=== PATIENT | female | born 1945 | race Caucasian/White ===

== ENCOUNTER 2018-12-22 20:33 | Emergency (ER) | payer OTHER ==
[2018-12-22 21:04] LABS: Absolute Lymphocytes (CBC) 2.7 K/uL (0.7-4.9); Absolute Monocytes 0.7 K/uL (0.1-1.3); Absolute Neutrophil 3.2 K/uL (1.8-8.0); Basophils % 0.6 % (0-1.3); Eosinophils % 1.9 % (0-4.4); Hematocrit 40.6 % (36.0-45.0); Lymphocytes % 40.5 % (15.3-44.8); MPV 8.1 fL (7.6-11.3); Monocytes % 9.8 % (3.3-12.3); RBC Red Blood Cell Count 4.48 M/uL (3.86-4.86)
[2018-12-22 21:08] LABS: Protime INR 0.96
[2018-12-22 21:23] LABS: ALT/SGPT 18 U/L (12-78); AST/SGOT 15 U/L (15-37); Albumin 3.9 g/dL (3.4-5.0); Alkaline Phosphatase 93 U/L (45-117); BUN Blood Urea Nitrogen 15 mg/dL (7-18); Bicarbonate 26 mmol/L (21-32); Bilirubin Direct 0.1 mg/dL (0-0.2); Bilirubin Total 0.5 mg/dL (0.2-1.0); Glucose Level 102 mg/dL (74-106); Magnesium 2.4 mg/dL (1.8-2.4); NT PRO-BNP 315 pg/mL (<125); Potassium 3.7 mmol/L (3.5-5.1); Protein, Total 7.6 g/dL (6.4-8.2); Sodium Level 142 mmol/L (136-145); Troponin (Emerg Dept Use Only) < 0.02 ng/mL (0.0-0.045)
--- NOTE | 2018-12-23 00:10 | ER ---
Nurse's Notes [facility] Name: Ivanna Joseph Age: 73 yrs Sex: Female : 1945 Arrival Date: 12/22/2018 Time: 20:34 Bed 5 Private MD: Beny Lopez C Diagnosis: Chest pain, unspecified Presentation: 12/22 20:40 Presenting complaint: Patient states: I have been having SOB and CP since 1300 today la1 but in the last hour it has gotten much worse and my BP at home was 188/99. Transition of care: patient was not received from another setting of care. Onset of symptoms was December 22, 2018. Risk Assessment: Do you want to hurt yourself or someone else? Patient reports no desire to harm self or others. Initial Sepsis Screen: Does the patient meet any 2 criteria? No. Patient's initial sepsis screen is negative. Does the patient have a suspected source of infection? No. Patient's initial sepsis screen is negative. Care prior to arrival: None. 20:40 Method Of Arrival: Wheelchair la1 20:40 Acuity: QUE 2 la1 Historical: - Allergies: 20:41 Codeine; la1 - PMHx: 20:41 Arthritis; Hyperlipidemia; Hypertension; aortic stenosis; la1 - PSHx: 20:41 ; la1 - Immunization history:: Adult Immunizations up to date. - Social history:: Smoking status: Patient/guardian denies using tobacco. - Ebola Screening: : No symptoms or risks identified at this time. Screenin:00 Abuse screen: Denies threats or abuse. Nutritional screening: No deficits noted. jd3 Tuberculosis screening: No symptoms or risk factors identified. Fall Risk IV access (20 points). Ambulatory Aid- None/Bed Rest/Nurse Assist (0 pts). Gait- Normal/Bed Rest/Wheelchair (0 pts) Mental Status- Oriented to own ability (0 pts). Total [place] Fall Scale indicates No Risk (0-24 pts). Assessment: 20:46 General: Appears uncomfortable, Behavior is calm, cooperative, appropriate for age. jd3 Pain: Complains of pain in chest Pain does not radiate. Quality of pain is described as pressure, Pain began gradually. Neuro: Level of Consciousness is awake, alert, obeys commands, Oriented to person, place, time, situation, Appropriate for age. Cardiovascular: Murmur present Capillary refill < 3 seconds Patient's skin is warm and dry. Respiratory: Reports shortness of breath at rest Airway is patent Respiratory effort is even, unlabored, Respiratory pattern is regular, symmetrical, Breath sounds are clear bilaterally. GI: No signs and/or symptoms were reported involving the gastrointestinal system. : No signs and/or symptoms were reported regarding the genitourinary system. EENT: No signs and/or symptoms were reported regarding the EENT system. Derm: Skin is intact, Skin is dry, Skin is normal, Skin temperature is warm. Musculoskeletal: Circulation, motion, and sensation intact. Range of motion: intact in all extremities. 21:30 Reassessment: Patient appears in no apparent distress at this time. Patient and/or jd3 family updated on plan of care and expected duration. Pain level reassessed. Patient is alert, oriented x 3, equal unlabored respirations, skin warm/dry/pink. 22:07 Reassessment: Patient appears in no apparent distress at this time. Patient and/or jd3 family updated on plan of care and expected duration. Pain level reassessed. Patient is alert, oriented x 3, equal unlabored respirations, skin warm/dry/pink. 23:04 Reassessment: Patient appears in no apparent distress at this time. Patient and/or jd3 family updated on plan of care and expected duration. Pain level reassessed. Patient is alert, oriented x 3, equal unlabored respirations, skin warm/dry/pink. Patient states feeling better. 12/23 01:18 Reassessment: Patient appears in no apparent distress at this time. Patient is alert, aa1 oriented x 3, equal unlabored respirations, skin warm/dry/pink. Discussed d/c \T\ f/u instructions with pt; denies questions or concerns at this time. Ambulatory to lobby with steady gait. Patient states feeling better. Vital Signs: 12/22 20:42 Weight 63.5 kg; Height 5 ft. 4 in. (162.56 cm); la1 20:45 BP 187 / 83; Pulse 68; Resp 18 S; Temp 98.0(O); Pulse Ox 98% on R/A; Pain 5/10; jd3 21:30 BP 136 / 60; Pulse 62; Resp 17 S; Pulse Ox 97% on R/A; jd3 22:08 BP 153 / 69; Pulse 68; Resp 15 S; Pulse Ox 97% on R/A; jd3 23:04 BP 158 / 69; Pulse 62; Resp 15 S; Pulse Ox 97% on R/A; Pain 0/10; jd3 12/23 00:46 BP 145 / 68; Pulse 66; Resp 16; Pulse Ox 98% on R/A; la1 12/22 20:42 Body Mass Index 24.03 (63.50 kg, 162.56 cm) la1 ED Course: 12/22 20:34 Patient arrived in ED. am2 20:34 Beny Lopez MD is Private Physician. am2 20:38 Koby Dave MD is Attending Physician. kdr 20:41 Triage completed. la1 20:41 Arm band placed on right wrist. la1 20:45 Otoniel Garcia RN is Primary Nurse. jd3 20:55 EKG done, by ED staff, reviewed by Koby Dave MD. ag4 20:55 Inserted saline lock: 20 gauge in left antecubital area, using aseptic technique. Blood jd3 collected. 21:05 XRAY Chest (1 view) In Process Unspecified. EDMS 22:10 Patient has correct armband on for positive identification. Placed in gown. Bed in low jd3 position. Call light in reach. Side rails up X2. Adult w/ patient. shelter monitor on. Pulse ox on. NIBP on. 22:10 Patient maintains SpO2 saturation greater than 95% on room air. jd3 12/23 00:08 Beny Lopez MD is Referral Physician. kdr 00:46 No provider procedures requiring assistance completed. IV discontinued, intact, la1 bleeding controlled, No redness/swelling at site. Pressure dressing applied. Administered Medications: No medications were administered Outcome: 00:09 Discharge ordered by . kdr 00:46 Discharged to home ambulatory. la1 00:46 Condition: stable 00:46 Discharge instructions given to patient, Instructed on discharge instructions, follow up and referral plans. medication usage, Demonstrated understanding of instructions, follow-up care. 01:19 Patient left the ED. aa1 Signatures: Dispatcher [employer] EDMS Chantelle King RN RN aa1 Rittger, Koby, Marlon Barker MD RN RN la1 Madisyn Beck am2 Otoniel Garcia RN RN jd3 Candido, Mike ag4
--- NOTE | 2018-12-23 00:10 | EDPHYS ---
Physician Documentation [facility] Name: Ivanna Joseph Age: 73 yrs Sex: Female : 1945 Arrival Date: 12/22/2018 Time: 20:34 Bed 5 Private MD: Beny Lopez C ED Physician Koby Dave HPI: 12/23 03:26 This 73 yrs old Female presents to ER via Wheelchair with complaints of Chest kdr Pain. 03:26 The patient or guardian reports chest pain that is located primarily in the anterior kdr chest wall, bilaterally. Onset: gradually, at 13:00. The pain does not radiate. Associated signs and symptoms: Pertinent positives: shortness of breath, Pertinent negatives: diaphoresis, dizziness, headache, nausea, palpitations, recent travel, syncope. The chest pain is described as aching, burning, dull. Duration: The patient or guardian reports a single episode, that is now resolved. Modifying factors: The symptoms are alleviated by nothing. the symptoms are aggravated by nothing. Severity of pain: At its worst the pain was mild in the emergency department the pain has resolved. The patient has not experienced similar symptoms in the past. The patient has not recently seen a physician. Historical: - Allergies: 12/22 20:41 Codeine; la1 - PMHx: 20:41 Arthritis; Hyperlipidemia; Hypertension; aortic stenosis; la1 - PSHx: 20:41 ; la1 - Immunization history:: Adult Immunizations up to date. - Social history:: Smoking status: Patient/guardian denies using tobacco. - Ebola Screening: : No symptoms or risks identified at this time. ROS: 12/23 03:26 Constitutional: Negative for fever, chills, and weight loss, Eyes: Negative for injury, kdr pain, redness, and discharge, Neck: Negative for injury, pain, and swelling, Respiratory: Negative for shortness of breath, cough, wheezing, and pleuritic chest pain, Abdomen/GI: Negative for abdominal pain, nausea, vomiting, diarrhea, and constipation, Back: Negative for injury and pain, : Negative for injury, bleeding, discharge, and swelling, MS/Extremity: Negative for injury and deformity, Skin: Negative for injury, rash, and discoloration, Neuro: Negative for headache, weakness, numbness, tingling, and seizure activity. Psych: Negative for depression, anxiety, suicide ideation, homicidal ideation, and hallucinations, Allergy/Immunology: Negative for hives, rash, and allergies, Endocrine: Negative for neck swelling, polydipsia, polyuria, polyphagia, and marked weight changes, Hematologic/Lymphatic: Negative for swollen nodes, abnormal bleeding, and unusual bruising. Cardiovascular: Positive for chest pain, Negative for edema, orthopnea, palpitations, paroxysmal nocturnal dyspnea. Exam: 03:26 Constitutional: This is a well developed, well nourished patient who is awake, alert, kdr and in no acute distress. Head/Face: Normocephalic, atraumatic. Eyes: Pupils equal round and reactive to light, extra-ocular motions intact. Lids and lashes normal. Conjunctiva and sclera are non-icteric and not injected. Cornea within normal limits. Periorbital areas with no swelling, redness, or edema. Neck: Trachea midline, no thyromegaly or masses palpated, and no cervical lymphadenopathy. Supple, full range of motion without nuchal rigidity, or vertebral point tenderness. No Meningismus. Chest/axilla: Normal chest wall appearance and motion. Nontender with no deformity. No lesions are appreciated. Cardiovascular: Regular rate and rhythm with a normal S1 and S2. No gallops, murmurs, or rubs. Normal PMI, no JVD. No pulse deficits. Respiratory: Lungs have equal breath sounds bilaterally, clear to auscultation and percussion. No rales, rhonchi or wheezes noted. No increased work of breathing, no retractions or nasal flaring. Abdomen/GI: Soft, non-tender, with normal bowel sounds. No distension or tympany. No guarding or rebound. No evidence of tenderness throughout. Back: No spinal tenderness. No costovertebral tenderness. Full range of motion. Skin: Warm, dry with normal turgor. Normal color with no rashes, no lesions, and no evidence of cellulitis. MS/ Extremity: Pulses equal, no cyanosis. Neurovascular intact. Full, normal range of motion. Neuro: Awake and alert, GCS 15, oriented to person, place, time, and situation. Cranial nerves II-XII grossly intact. Motor strength 5/5 in all extremities. Sensory grossly intact. Cerebellar exam normal. Normal gait. Psych: Awake, alert, with orientation to person, place and time. Behavior, mood, and affect are within normal limits. Vital Signs: 12/22 20:42 Weight 63.5 kg; Height 5 ft. 4 in. (162.56 cm); la1 20:45 BP 187 / 83; Pulse 68; Resp 18 S; Temp 98.0(O); Pulse Ox 98% on R/A; Pain 5/10; jd3 21:30 BP 136 / 60; Pulse 62; Resp 17 S; Pulse Ox 97% on R/A; jd3 22:08 BP 153 / 69; Pulse 68; Resp 15 S; Pulse Ox 97% on R/A; jd3 23:04 BP 158 / 69; Pulse 62; Resp 15 S; Pulse Ox 97% on R/A; Pain 0/10; jd3 12/23 00:46 BP 145 / 68; Pulse 66; Resp 16; Pulse Ox 98% on R/A; la1 12/22 20:42 Body Mass Index 24.03 (63.50 kg, 162.56 cm) la1 MDM: 00:09 Patient medically screened. kdr 03:26 HEART Score: History: Slightly Suspicious (0), ECG: Non specific repolarization kdr disturbance / LBTB / PM (1), Age: > or = 65 years (2), Risk Factors: 1 or 2 risk factors (1), [Hypertension] Troponin: < or = 1 x Normal Limit (0), Total Score =. INA Risk Score: 1 - patient's age is greater or equal to 65 years, TOTAL SCORE = 1. Data reviewed: vital signs, nurses notes, lab test result(s), EKG, radiologic studies. Counseling: I had a detailed discussion with the patient and/or guardian regarding: the historical points, exam findings, and any diagnostic results supporting the discharge/admit diagnosis, lab results, radiology results, the need for outpatient follow up. ED course: HEART Score: Moderate; INA 4 - 7.3 % 30 day mortality. 12/22 20:41 Order name: Basic Metabolic Panel kdr 12/22 20:41 Order name: CBC with Diff; Complete Time: 21:12 kdr 12/22 20:41 Order name: LFT's; Complete Time: 22:37 kdr 12/22 20:41 Order name: Magnesium; Complete Time: 22:37 kdr 12/22 20:41 Order name: NT PRO-BNP; Complete Time: 22:37 [facility] 12/22 20:41 Order name: PT-INR; Complete Time: 21:12 [facility] 12/22 20:41 Order name: Troponin (emerg Dept Use Only); Complete Time: 22:37 [facility] 12/22 20:41 Order name: XRAY Chest (1 view) [facility] 12/22 20:41 Order name: EKG; Complete Time: 20:42 [facility] 12/22 20:41 Order name: Cardiac monitoring; Complete Time: 20:59 [facility] 12/22 20:41 Order name: EKG - Nurse/Tech; Complete Time: 21:00 [facility] 12/22 20:41 Order name: IV Saline Lock; Complete Time: 21:00 [facility] 12/22 20:41 Order name: Basic Metabolic Panel; Complete Time: 22:37 [facility] 12/22 22:38 Order name: Troponin (emerg Dept Use Only): Draw two hours from initial draw; Complete kdr Time: 00:07 12/22 20:41 Order name: Labs collected and sent; Complete Time: 21:00 [facility] 12/22 20:41 Order name: O2 Per Protocol; Complete Time: 21:00 [facility] 12/22 20:41 Order name: O2 Sat Monitoring; Complete Time: 21:00 kdr Administered Medications: No medications were administered Disposition: 12/23/18 00:09 Discharged to Home. Impression: Chest pain, unspecified. - Condition is Stable. - Discharge Instructions: Nonspecific Chest Pain, [id number]. - Medication Reconciliation Form, Thank You Letter form. - Follow up: Beny Lopez MD; When: 2 - 3 days; Reason: If symptoms return, Further diagnostic work-up, Recheck today's complaints, Continuance of care, Re-evaluation by your physician. - Problem is new. - Symptoms are resolved. Signatures: Dispatcher [employer] EDChantelle Dillon RN RN aa1 Koby Dave MD MD kdr Attema, Lee RN RN la1 Corrections: (The following items were deleted from the chart) 01:19 00:09 12/23/2018 00:09 Discharged to Home. Impression: Chest pain, unspecified. aa1 Condition is Stable. Forms are Medication Reconciliation Form, Thank You Letter, Antibiotic Education, Prescription Opioid Use. Follow up: A Lopez; When: 2 - 3 days; Reason: If symptoms return, Further diagnostic work-up, Recheck today's complaints, Continuance of care, Re-evaluation by your physician. Problem is new. Symptoms are resolved. kdr
[2018-12-23 04:33] VITALS: TEMP 98
[2018-12-23 04:39] VITALS: BP 145/68; O2SAT 98
--- NOTE | 2018-12-23 07:42 | RAD REPORT ---
EXAM DESCRIPTION: RAD - Chest Single View - 12/22/2018 9:05 pm CLINICAL HISTORY: Chest pain, shortness of breath COMPARISON: May 2017 TECHNIQUE: AP portable chest image was obtained 2102 hours . FINDINGS: No focal mass or consolidation. Interstitial markings are prominent but not different from 2017. Heart and vasculature are normal. No measurable pleural effusion and no pneumothorax. No acute bony abnormality seen. No acute aortic findings suspected. IMPRESSION: No acute cardiopulmonary process. No significant change from comparison.
--- NOTE | 2018-12-23 08:47 | EKG ---
Test Date: 2018-12-22 Test Time: 20:45:29 Slot Operations Manager: [id number] MEASUREMENT RESULTS: Intervals: Rate: 66 TN: 186 QRSD: 84 QT: 390 QTc: 408 Esko: P: 70 TN: 186 QRS: 18 T: 42 INTERPRETIVE STATEMENTS: Normal sinus rhythm Normal ECG Compared to ECG 06/09/2017 13:42:11 Left ventricular hypertrophy no longer present Electronically Signed On 12-23-18 08:46:01 CDT by Bar Davis
== END 2018-12-23 01:19 | disposition home or self-care (01) ==
LOC: ER 20:33
DX: R07.9 Chest pain, unspecified (principal); I10 Essential (primary) hypertension; Z88.5 Allergy status to narcotic agent
CPT/HCPCS: 36415; 71045; 80048; 80076; 83735; 83880; 84484; 85025; 85610; 93005; 99285

== ENCOUNTER 2018-12-27 07:31 | Day surgery (SDC) | payer OTHER ==
[2018-12-26 14:21] LABS: Protime INR 1.01
[2018-12-27] MEDS ORDERED: NA CHLORIDE 0.9% 500 ML ONE (07:54)
[2018-12-27] MEDS ORDERED: HEPA 1000U/500MLS 1,000 UNIT/500 ML BAG IV ONE (08:44)
[2018-12-27] MEDS ORDERED: NA CHLORIDE 0.9% 0 ML ONE (08:57)
[2018-12-27] MEDS ORDERED: NA CHLORIDE 0.9% 100 ML IV ONE (08:57)
[2018-12-27] MEDS ORDERED: MIDAZOLAM HCL 2 MG/2 ML INJ ONE ×2 (08:57→09:23)
[2018-12-27] MEDS ORDERED: ATROPINE SULF 1 MG/10 ML SYR IV ONE (08:57)
[2018-12-27] MEDS ORDERED: FENTANYL CITR 100 MCG/2 ML ONE (08:57)
[2018-12-27 11:53] VITALS: BP 117/51; TEMP 97.6; O2SAT 97
--- NOTE | 2018-12-27 20:21 | OP ---
Surgeon: Bar Davis MD Physician Compensation Analyst: Nurse Ilya and nurse Gloria. The patient admitted as an outpatient on 12/27/2018 to the computer laboratory technician for left and right heart catheter ization. Indications: Ms. Joseph is 73, has had symptoms suggestive of severe aortic stenosis. An echocardio gram showed an area of 0.8 cm2. The patient has been having presyncope and chest pain with exertion. In the computer laboratory technician, she was prepped and draped in the routine sterile fashion. She was given, I belie ve, 4 mg of Versed and 100 of fentanyl for IV sedation. She was prepped and draped in the routine st erile fashion. She had a 7-Chile[place] venous sheath in the right common femoral vein, a 6-[place] arteria l sheath in the common femoral artery. The [place] catheter was floated via the right common femor al vein into the right atrium, right ventricle, pulmonary artery, and then wedge pressure. All those pressures were normal. O2 saturation run was done. These are pending. Cardiac output was about 4. 4 L/minute. Left heart catheterization showing normal LAD, normal circumflex, which was dominant, 10 0% nondominant small RCA. There were no complications. Blood Loss: 5 cc. Anesthesia: Total conscious sedation was 45 minutes. Plan: For aortic valve replacement surgery by Dr. Daria schuler in [place]. Final Diagnoses: Mild coronary artery disease and severe aortic valve stenosis. ANAHI/ROSAMARIA Voice ID: [id number] Report ID: [id number]
== END 2018-12-27 12:00 | disposition home or self-care (01) ==
LOC: CCL 07:31
DX: I35.0 Nonrheumatic aortic (valve) stenosis (principal); I25.10 Atherosclerotic heart disease of native coronary artery without angina pectoris; I10 Essential (primary) hypertension; E78.6 Lipoprotein deficiency; E78.5 Hyperlipidemia, unspecified; Z79.899 Other long term (current) drug therapy; Z79.82 Long term (current) use of aspirin
CPT/HCPCS: 36415; 85610; 85730; 93456; C1893; J2250 ×2; J3010; J0583

== ENCOUNTER 2019-03-25 11:35 | Emergency (ER) | payer OTHER ==
--- OUTSIDE RECORDS SUMMARY | 2019-03-25 11:40 | XMS REPORT | Clinical Summary ---
:1945 Author Organization [facility] Address [address] [place] [address] Care Team Providers Name Role Phone Asked, No Pcp Primary Care Provider Unavailable Allergies Active Allergy Reactions Severity Noted Date Comments Atorvastatin Other (See Comments) 01/03/2019 Feels confuse. Codeine Other (See Comments) Low 01/03/2019 Lowers heart rate. Tomato Rash Low 02/13/2019 Pt states when she consumes tomatoes she develops a rash on her face. Iodixanol Palpitations, Other (See Low 01/24/2019 Tachycardia Comments), Hypertension Medications Medication Sig Dispensed Refills Start Date End Date Status pravastatin Take 80 mg by 6 12/06/2018 Active (PRAVACHOL) 80 MG mouth nightly. tablet aspirin (ECOTRIN) Take 81 mg by 0 Active 81 MG enteric mouth daily. coated tablet carvedilol Take 1 tablet 60 tablet 0 02/15/2019 02/15/2020 Active (COREG) 6.25 MG (6.25 mg total) tablet by mouth 2 (two) times a day. amIODarone Amiodarone 400 44 tablet 0 02/15/2019 Active (PACERONE) 400 MG mg BID X 7 days tablet dispense # 14 till 02/22/2019 Then Amiodarone 200 mg BID 30 days #60 From 02/23/2019 to 03/26/2019 carvedilol Take 6.25 mg by 6 11/01/2018 02/15/2019 Discontinued (COREG) 6.25 MG mouth 2 (two) tablet times a day as needed. amIODarone Take 1 tablet 60 tablet 0 02/15/2019 02/15/2019 Discontinued (PACERONE) 400 MG (400 mg total) tablet by mouth 2 (two) times a day for 30 days. traMADol (ULTRAM) Take 1 tablet 30 tablet 0 02/15/2019 02/22/2019 50 mg tablet (50 mg total) by mouth every 6 (six) hours as needed for moderate pain for up to 7 days. Active Problems Problem Noted Date Aortic stenosis 03/07/2019 Primary spontaneous pneumothorax 02/10/2019 Paroxysmal atrial fibrillation 02/10/2019 Atelectasis 02/10/2019 Coronary artery disease involving [place] coronary artery of [place] heart 01/03 without angina pectoris Essential hypertension 01/03/2019 Resolved Problems Problem Noted Date Resolved Date Acute blood loss anemia 02/10/2019 02/15/2019 Nonrheumatic aortic (valve) stenosis 02/07/2019 02/15/2019 Nonrheumatic aortic valve stenosis 01/03/2019 02/15/2019 Encounters Date Type Specialty Care Team Description 03/07/2019 Office Visit Cardiovascular Daria, Nonrheumatic aortic Rehana valve stenosis MD Rosi (Primary Dx) 03/07/2019 Hospital Encounter Radiology Daria, Nonrheumatic aortic Rehana valve stenosis MD Rosi 03/07/2019 Orders Only Cardiovascular Adalberto, Atelectasis (Primary Rosalia Dx) LISA Mcneill 02/20/2019 Telephone Cardiovascular Adalberto, Nonrheumatic aortic Rosalia valve stenosis LISA Mcneill (Primary Dx) 02/19/2019 Orders Only Cardiovascular Ani Aguilar MA Post-operative state (Primary Dx) 02/15/2019 Patient Outreach Quality Caroline Ponce RN 02/07/2019 Surgery Cardiothoracic Daria, [facility] AORTIC VALVE Surgery Rehana REPLACEMENT, WITH MD Rosi TCD MONITORING 02/07/2019 Anesthesia Event Cardiothoracic Madisyn Alves Surgery W., POT FEEDER 02/07/2019 Hospital Encounter General Internal Daria, S/P CABG ( coronary artery bypass graft) (Primary Dx); - Medicine Rehana Nonrheumatic aortic valve stenosis 02/15/2019 MD Rosi 01/24/2019 Hospital Encounter Radiology Daria, Nonrheumatic aortic valve stenosis; Rehana Pre-op evaluation MD Rosi 01/24/2019 Pre-Admit Testing Pre-Admission Testing Daria, Nonrheumatic aortic valve stenosis; Appointment Rehana Pre-op evaluation MD Rosi 01/24/2019 Hospital Encounter Procedural Cardiology Daria, Nonrheumatic aortic Rehana valve stenosis MD Rosi 01/04/2019 Orders Only Cardiovascular Ani Aguilar MA Nonrheumatic aortic valve stenosis (Primary Dx) 01/03/2019 Office Visit Cardiovascular Daria, Coronary artery disease involving [place] coronary artery of [place] heart without angina pectoris (Primary Dx); Rehana Nonrheumatic aortic valve stenosis; MD Rosi Essential hypertension; Abnormal cardiovascular function study 01/03/2019 Hospital Encounter Procedural Cardiology Daria, Nonrheumatic aortic valve stenosis; Rehana Coronary artery disease involving [place] coronary artery of [place] heart, angina presence unspecified MD Rosi 01/03/2019 Hospital Encounter Pulmonology Daria, Nonrheumatic aortic Rehana (valve) stenosis MD Rosi 01/03/2019 Orders Only Cardiovascular Chetna Martinez RN Nonrheumatic aortic valve stenosis (Primary Dx); Pre-op evaluation 01/01/2019 Orders Only Cardiovascular Chetna Martinez RN Nonrheumatic aortic valve stenosis (Primary Dx); Coronary artery disease involving [place] coronary artery of [place] heart, angina presence unspecified after 03/24/2018 Social History Tobacco Use Types Packs/Day Years Used Date Never Smoker Smokeless Tobacco: Never Used Alcohol Use Drinks/Week oz/Week Comments Not Currently Sex Assigned at Date Recorded Not on file Job Start Date Occupation Industry Not on file Not on file Not on file Travel History Travel Start Travel End No recent travel history available. Last Filed Vital Signs Vital Sign Reading Time Taken Blood Pressure 110/60 03/07/2019 12:53 PM CDT Pulse 65 03/07/2019 12:53 PM CDT Temperature 36.6 C (97.8 F) 03/07/2019 12:53 PM CDT Respiratory Rate 14 03/07/2019 12:53 PM CDT Oxygen Saturation 97% 02/15/2019 11:30 AM CDT Inhaled Oxygen Concentration - - Weight 66 kg (145 lb 8 oz) 03/07/2019 12:53 PM CDT Height 162.6 cm (5' 4") 03/07/2019 12:53 PM CDT Body Mass Index 24.98 03/07/2019 12:53 PM CDT Plan of Treatment Date Type Specialty Care Team Description 04/02/2019 Office Visit Cardiovascular Rehana Mullins MD [address] [facility] [address] [place] [id number] Health Maintenance Due Date Last Done Comments BREAST CANCER SCREENING 1994 COLONOSCOPY SCREENING 1994 SHINGLES VACCINES (#1) 1994 65+ PNEUMOCOCCAL VACCINE (1 of 2 - PCV13) 2009 INFLUENZA VACCINE 03/14/2019 Implants Implanted Type Area [employer] Business Intelligence Developer Device Shelf Model / Identifier Expiration Serial / Date Lot Lead Pace Glenn Mycrdl Unipol Tmpry Streamline - [id number] Cardiac Pacing N/A : [employer] 11/22/2020 [id number] / Implanted: Qty: 1 on 02/07/2019 by Rehana Mullins MD Leads or N/A CARDIOVASCULAR / Electrodes or Accessories Lead Pace Glenn Mycrdl Unipol Tmpry Streamline - [id number] Cardiac Pacing N/A : [employer] 11/22/2020 [id number] / Implanted: Qty: 1 on 02/07/2019 by Rehana Mullins MD Leads or N/A CARDIOVASCULAR / Electrodes or Accessories Lead Pace Mycrdl Bipolar Coax Tmpry Streamline - [id number] Cardiac Pacing N/ A: [employer] [facility] - 11/13/2020 [id number] / Implanted: Qty: 1 on 02/07/2019 by Rehana Mullins MD Leads or N/A CARDIAC RYHTYM / Electrodes or MGMT Accessories Valve Perceval Medium 23mm - [id number] Cardiovascular N/A: [employer] 01/05/2021 [id number] / Implanted: 02/07/2019 (Quantity not on file) Implants N/A [id number] / [id number] Sternal Drill-Free, Maxdrive Locking Screw 2.3mm X 11mm Ti-6al-4v Titanium Alloy - [id number] IMPLANT SWETHA TURNER 24 023 11 91 / Implanted: Qty: 6 on 02/07/2019 by Rehana Mullins MD DEVICES / Plate, Lock, Sternal, 14 Holes - [id number] IPM IMPLANT SWETHA TURNER 24 025 [id number] 09 / Implanted: Qty: 1 on 02/07/2019 by Rehana Mullins MD DEVICES / Clip Ligtng Weck Hemoclip Plus W/ Tape Ti Med - [id number] Medical Clips for N/A: [employer] 11/06/2023 [id number] / Implanted: Qty: 3 on 02/07/2019 by Rehana Mullins MD Internal Use N/A / Clip Ligtng Vicck Hemoclip Plus W/ Tape Ti Sm Strngpnt - [id number] Medical Clips for N/A: WECK [employer]OSURE 2023 [id number] / Implanted: Qty: 3 on 02/07/2019 by Rehana Mullins MD Internal Use N/A SYSTEMS / Kit Dev Cor-Knot - [id number] Surgical N/A: [employer] 10/11/2020 [id number] / Implanted: Qty: 1 on 02/07/2019 by Rehana Mullins MD Implants ; N/A / Expanders; Extenders; Surgical Wires [facility] Vasclr Ptfe 1.2x10cm 1.65mm - [id number] Vascular Graft N/A: BARD PERIPHERAL 11/09/2023 [id number] / Implanted: Qty: 1 on 02/07/2019 by Rehana Mullins MD N/A VASCULAR / [id number] Procedures Procedure Name Priority Date/Time Associated Diagnosis Comments XR CHEST 2 VW Routine 03/07/2019 10:41 Nonrheumatic aortic Results for this AM CDT valve stenosis procedure are in the results section. XR CHEST 1 VW PORTABLE Routine 02/15/2019 11:21 Results for this AM CDT procedure are in the results section. ESTIMATED GFR Routine 02/14/2019 4:19 Results for this AM CDT procedure are in the results section. MAGNESIUM LEVEL Routine 02/14/2019 4:19 Results for this AM CDT procedure are in the results section. BASIC METABOLIC PANEL Routine 02/14/2019 4:19 Results for this AM CDT procedure are in the results section. HC COMPLETE BLD COUNT Routine 02/14/2019 4:19 Results for this W/AUTO DIFF AM CDT procedure are in the results section. XR CHEST 1 VW PORTABLE Routine 02/13/2019 12:26 Results for this PM CDT procedure are in the results section. ESTIMATED GFR Routine 02/13/2019 4:10 Results for this AM CDT procedure are in the results section. HC COMPLETE BLD COUNT Routine 02/13/2019 4:10 Results for this W/AUTO DIFF AM CDT procedure are in the results section. MAGNESIUM LEVEL Routine 02/13/2019 4:10 Results for this AM CDT procedure are in the results section. BASIC METABOLIC PANEL Routine 02/13/2019 4:10 Results for this AM CDT procedure are in the results section. ECHOCARDIOGRAM 2D Routine 02/12/2019 7:15 Results for this COMPLETE W MMODE PM CDT procedure are in SPECTRAL COLOR DOPPLER the results (44295) section. PREPARE RBC Routine 02/12/2019 11:00 Results for this AM CDT procedure are in the results section. TYPE AND SCREEN Routine 02/12/2019 11:00 Results for this AM CDT procedure are in the results section. CBC HEMOGRAM Routine 02/12/2019 1:00 Results for this AM CDT procedure are in the results section. ESTIMATED GFR Routine 02/12/2019 12:00 Results for this AM CDT procedure are in the results section. PHOSPHORUS LEVEL Routine 02/12/2019 12:00 Results for this AM CDT procedure are in the results section. IONIZED CALCIUM Routine 02/12/2019 12:00 Results for this AM CDT procedure are in the results section. MAGNESIUM LEVEL Routine 02/12/2019 12:00 Results for this AM CDT procedure are in the results section. BASIC METABOLIC PANEL Routine 02/12/2019 12:00 Results for this AM CDT procedure are in the results section. POC GLUCOSE Routine 02/11/2019 11:44 Results for this AM CDT procedure are in the results section. POC GLUCOSE Routine 02/11/2019 7:51 Results for this AM CDT procedure are in the results section. XR CHEST 1 VW PORTABLE Routine 02/11/2019 6:22 Results for this AM CDT procedure are in the results section. POC GLUCOSE Routine 02/11/2019 4:43 Results for this AM CDT procedure are in the results section. ESTIMATED GFR Routine 02/11/2019 3:36 Results for this AM CDT procedure are in the results section. BASIC METABOLIC PANEL Routine 02/11/2019 3:36 Results for this AM CDT procedure are in the results section. PHOSPHORUS LEVEL Routine 02/11/2019 3:36 Results for this AM CDT procedure are in the results section. MAGNESIUM LEVEL Routine 02/11/2019 3:36 Results for this AM CDT procedure are in the results section. CBC HEMOGRAM Routine 02/11/2019 3:10 Results for this AM CDT procedure are in the results section. POC GLUCOSE Routine 02/11/2019 12:26 Results for this AM CDT procedure are in the results section. POC GLUCOSE Routine 02/10/2019 8:53 Results for this PM CDT procedure are in the results section. XR CHEST 1 VW PORTABLE STAT 02/10/2019 5:59 Results for this PM CDT procedure are in the results section. POC GLUCOSE Routine 02/10/2019 4:30 Results for this PM CDT procedure are in the results section. POC GLUCOSE Routine 02/10/2019 11:51 Results for this AM CDT procedure are in the results section. PHOSPHORUS LEVEL Routine 02/10/2019 10:30 Results for this AM CDT procedure are in the results section. MAGNESIUM LEVEL Routine 02/10/2019 10:30 Results for this AM CDT procedure are in the results section. IONIZED CALCIUM Routine 02/10/2019 10:30 Results for this AM CDT procedure are in the results section. POTASSIUM LEVEL Routine 02/10/2019 10:30 Results for this AM CDT procedure are in the results section. ECG 12-LEAD STAT 02/10/2019 10:25 Results for this AM CDT procedure are in the results section. POC GLUCOSE Routine 02/10/2019 7:50 Results for this AM CDT procedure are in the results section. HEMOGLOBIN & STAT 02/10/2019 6:03 Results for this HEMATOCRIT AM CDT procedure are in the results section. XR CHEST 1 VW PORTABLE Routine 02/10/2019 4:58 Results for this AM CDT procedure are in the results section. POC GLUCOSE Routine 02/10/2019 4:03 Results for this AM CDT procedure are in the results section. HEMOGLOBIN & STAT 02/10/2019 3:06 Results for this HEMATOCRIT AM CDT procedure are in the results section. ECG 12-LEAD Routine 02/10/2019 2:27 Results for this AM CDT procedure are in the results section. HEMOGLOBIN & STAT 02/10/2019 2:19 Results for this HEMATOCRIT AM CDT procedure are in the results section. IONIZED CALCIUM Routine 02/10/2019 1:30 Results for this AM CDT procedure are in the results section. ESTIMATED GFR Routine 02/10/2019 1:30 Results for this AM CDT procedure are in the results section. CBC HEMOGRAM Routine 02/10/2019 1:30 Results for this AM CDT procedure are in the results section. BASIC METABOLIC PANEL Routine 02/10/2019 1:30 Results for this AM CDT procedure are in the results section. PHOSPHORUS LEVEL Routine 02/10/2019 1:30 Results for this AM CDT procedure are in the results section. MAGNESIUM LEVEL Routine 02/10/2019 1:30 Results for this AM CDT procedure are in the results section. POC GLUCOSE Routine 02/10/2019 12:04 Results for this AM CDT procedure are in the results section. POC GLUCOSE Routine 02/09/2019 7:52 Results for this PM CDT procedure are in the results section. POC GLUCOSE Routine 02/09/2019 4:01 Results for this PM CDT procedure are in the results section. IONIZED CALCIUM Routine 02/09/2019 3:13 Results for this PM CDT procedure are in the results section. PHOSPHORUS LEVEL Routine 02/09/2019 3:13 Results for this PM CDT procedure are in the results section. MAGNESIUM LEVEL Routine 02/09/2019 3:13 Results for this PM CDT procedure are in the results section. POTASSIUM LEVEL Routine 02/09/2019 3:13 Results for this PM CDT procedure are in the results section. POC GLUCOSE Routine 02/09/2019 11:55 Results for this AM CDT procedure are in the results section. POC GLUCOSE Routine 02/09/2019 7:38 Results for this AM CDT procedure are in the results section. POC GLUCOSE Routine 02/09/2019 4:04 Results for this AM CDT procedure are in the results section. XR CHEST 1 VW PORTABLE Routine 02/09/2019 1:55 Results for this AM CDT procedure are in the results section. ARTERIAL BLOOD GAS Routine 02/09/2019 1:45 Results for this AM CDT procedure are in the results section. ECG 12-LEAD Routine 02/09/2019 12:55 Results for this AM CDT procedure are in the results section. TROPONIN Routine 02/09/2019 12:22 Results for this AM CDT procedure are in the results section. ESTIMATED GFR Routine 02/08/2019 11:50 Results for this PM CDT procedure are in the results section. IONIZED CALCIUM Routine 02/08/2019 11:50 Results for this PM CDT procedure are in the results section. PHOSPHORUS LEVEL Routine 02/08/2019 11:50 Results for this PM CDT procedure are in the results section. MAGNESIUM LEVEL Routine 02/08/2019 11:50 Results for this PM CDT procedure are in the results section. BASIC METABOLIC PANEL Routine 02/08/2019 11:50 Results for this PM CDT procedure are in the results section. HC COMPLETE BLD COUNT Routine 02/08/2019 11:50 Results for this W/AUTO DIFF PM CDT procedure are in the results section. POC GLUCOSE Routine 02/08/2019 11:34 Results for this PM CDT procedure are in the results section. POC GLUCOSE Routine 02/08/2019 8:01 Results for this PM CDT procedure are in the results section. POC GLUCOSE Routine 02/08/2019 5:46 Results for this PM CDT procedure are in the results section. XR CHEST 1 VW PORTABLE STAT 02/08/2019 12:26 Results for this PM CDT procedure are in the results section. POC GLUCOSE Routine 02/08/2019 11:45 Results for this AM CDT procedure are in the results section. ECG 12-LEAD STAT 02/08/2019 10:15 Results for this AM CDT procedure are in the results section. HEMOGLOBIN & Routine 02/08/2019 9:47 Results for this HEMATOCRIT AM CDT procedure are in the results section. TROPONIN STAT 02/08/2019 9:47 Results for this AM CDT procedure are in the results section. XR CHEST 1 VW PORTABLE STAT 02/08/2019 9:36 Results for this AM CDT procedure are in the results section. POC GLUCOSE Routine 02/08/2019 7:30 Results for this AM CDT procedure are in the results section. XR CHEST 1 VW PORTABLE Routine 02/08/2019 7:05 Results for this AM CDT procedure are in the results section. POC GLUCOSE Routine 02/08/2019 6:32 Results for this AM CDT procedure are in the results section. ECG 12-LEAD Routine 02/08/2019 4:40 Results for this AM CDT procedure are in the results section. POC GLUCOSE Routine 02/08/2019 4:04 Results for this AM CDT procedure are in the results section. ESTIMATED GFR Routine 02/08/2019 12:27 Results for this AM CDT procedure are in the results section. IONIZED CALCIUM Routine 02/08/2019 12:27 Results for this AM CDT procedure are in the results section. PHOSPHORUS LEVEL Routine 02/08/2019 12:27 Results for this AM CDT procedure are in the results section. MAGNESIUM LEVEL Routine 02/08/2019 12:27 Results for this AM CDT procedure are in the results section. BASIC METABOLIC PANEL Routine 02/08/2019 12:27 Results for this AM CDT procedure are in the results section. PARTIAL THROMBOPLASTIN Routine 02/08/2019 12:05 Results for this TIME (PTT) AM CDT procedure are in the results section. PROTHROMBIN TIME WITH Routine 02/08/2019 12:05 Results for this INR AM CDT procedure are in the results section. HC COMPLETE BLD COUNT Routine 02/08/2019 12:05 Results for this W/AUTO DIFF AM CDT procedure are in the results section. POC GLUCOSE Routine 02/07/2019 11:50 Results for this PM CDT procedure are in the results section. POC GLUCOSE Routine 02/07/2019 7:51 Results for this PM CDT procedure are in the results section. POC GLUCOSE Routine 02/07/2019 4:04 Results for this PM CDT procedure are in the results section. SURGICAL PATHOLOGY Routine 02/07/2019 3:15 Results for this REQUEST PM CDT procedure are in the results section. XR CHEST 1 VW PORTABLE Routine 02/07/2019 2:38 Results for this PM CDT procedure are in the results section. ECG 12-LEAD STAT 02/07/2019 1:54 Results for this PM CDT procedure are in the results section. IONIZED CALCIUM, Routine 02/07/2019 1:14 Results for this ARTERIAL PM CDT procedure are in the results section. ESTIMATED GFR Routine 02/07/2019 1:14 Results for this PM CDT procedure are in the results section. ARTERIAL BLOOD GAS Routine 02/07/2019 1:14 Results for this PM CDT procedure are in the results section. PARTIAL THROMBOPLASTIN Routine 02/07/2019 1:14 Results for this TIME (PTT) PM CDT procedure are in the results section. PROTHROMBIN TIME WITH Routine 02/07/2019 1:14 Results for this INR PM CDT procedure are in the results section. PHOSPHORUS LEVEL Routine 02/07/2019 1:14 Results for this PM CDT procedure are in the results section. MAGNESIUM LEVEL Routine 02/07/2019 1:14 Results for this PM CDT procedure are in the results section. HC COMPLETE BLD COUNT Routine 02/07/2019 1:14 Results for this W/AUTO DIFF PM CDT procedure are in the results section. BASIC METABOLIC PANEL Routine 02/07/2019 1:14 Results for this PM CDT procedure are in the results section. POC GLUCOSE Routine 02/07/2019 1:13 Results for this PM CDT procedure are in the results section. ARTERIAL BLOOD GAS, STAT 02/07/2019 12:34 Results for this CORRECTED PM CDT procedure are in the results section. HEMOGLOBIN, SYRINGE STAT 02/07/2019 12:34 Results for this PM CDT procedure are in the results section. SODIUM LEVEL, SYRINGE STAT 02/07/2019 12:34 Results for this PM CDT procedure are in the results section. POTASSIUM, SYRINGE STAT 02/07/2019 12:34 Results for this PM CDT procedure are in the results section. IONIZED CALCIUM, STAT 02/07/2019 12:34 Results for this ARTERIAL PM CDT procedure are in the results section. GLUCOSE LEVEL, SYRINGE STAT 02/07/2019 12:34 Results for this PM CDT procedure are in the results section. PV TRANSCRANIAL Routine 02/07/2019 12:30 Results for this DOPPLER INTRACRANIAL PM CDT procedure are in ARTERIES EMBOLI the results DETECTION WO INJECTION section. ACTIVATED CLOTTING Routine 02/07/2019 12:13 Results for this TIME PM CDT procedure are in the results section. SODIUM LEVEL, SYRINGE STAT 02/07/2019 10:45 Results for this AM CDT procedure are in the results section. ARTERIAL BLOOD GAS, STAT 02/07/2019 10:45 Results for this CORRECTED AM CDT procedure are in the results section. HEMOGLOBIN, SYRINGE STAT 02/07/2019 10:45 Results for this AM CDT procedure are in the results section. POTASSIUM, SYRINGE STAT 02/07/2019 10:45 Results for this AM CDT procedure are in the results section. GLUCOSE LEVEL, SYRINGE STAT 02/07/2019 10:45 Results for this AM CDT procedure are in the results section. IONIZED CALCIUM, STAT 02/07/2019 10:45 Results for this ARTERIAL AM CDT procedure are in the results section. ACTIVATED CLOTTING Routine 02/07/2019 10:11 Results for this TIME AM CDT procedure are in the results section. ACTIVATED CLOTTING Routine 02/07/2019 10:01 Results for this TIME AM CDT procedure are in the results section. PA CATHETER Routine 02/07/2019 8:26 AM CDT Procedure Note - Enrike Acevedo - 02/07/2019 8:26 AM CDT PA catheter Performed by: Enrike Acevedo Authorized by: Enrike Acevedo Patient Location: OR Staff: Anesthesiologist: Enrike Acevedo Resident/TREATMENT PLANT MECHANIC/AA: Enedelia Yoon MD Performed by: Resident/TREATMENT PLANT MECHANIC/AA Preprocedure: patient identified, IV checked, site and side verified, risks and benefits discussed, procedure verified, surgical consent complete, patient position confirmed, monitors and equipment checked and pre-op evaluation complete MSBT: antiseptic used, all elements of maximal sterile barrier technique followed, hand hygiene performed, cap/gown used by other personnel and solutions labeled Procedure details: PA Catheter Type: Oximetric PA Catheter Size: 9 PA Catheter Side: Right PA Catheter Site: Internal jugular PA Catheter secured at: 56 cm PA Catheter placed: PA Catheter placed through a second separate venous access point PA Catheter placed: PA Catheter placed without difficulty Waveform: PA Catheter wave confirmed Ports flushed: All ports flushed pre-procedure Balloon checked: Balloon checked prior to insertion Post-procedure: No arrhythmia: No arrhythmias noted Patient tolerance: Patient tolerated the procedure well with no immediate complications CENTRAL LINE Routine 02/07/2019 8:25 AM CDT Procedure Note - Enrike Acevedo - 02/07/2019 8:25 AM CDT Central line Performed by: Enrike Acevedo Authorized by: Enrike Acevedo Patient Location: OR Staff: Anesthesiologist: Enrike Acevedo Resident/TREATMENT PLANT MECHANIC/AA: Enedelia Yoon MD Performed by: Resident/TREATMENT PLANT MECHANIC/AA and anesthesiologist Preprocedure:patient identified, IV checked, site and side verified, risks and benefits discussed, procedure verified, surgical consent complete, patient position confirmed, monitors and equipment checked and pre-op evaluation complete MSBT: antiseptic used during central venous catheter insertion, all elements of maximal sterile barrier technique followed, hand hygiene performed prior to central venous catheter insertion, cap/gown used by other personnel during central venous catheter insertion, solutions labeled and all ports not used during insertion clamped Indications: Indications: Central pressure monitoring Anesthesia: Anesthesia: General Procedure details: Patient position: Trendelenburg Catheter Type: Double lumen Catheter Size: 9 Fr (mac 9) Catheter Site: internal jugular vein Catheter site laterality: Right Pre-procedure: Landmarks identified Ultrasound guidance used: Yes Ultrasound image saved: Yes Number of attempts: 1 Successful placement: Yes Guidewire removal: Guidewire removal is confirmed Guidewire removal witnessed by: Enedelia Yoon MD Post-procedure: Post-procedure: line sutured, sterile dressing applied per protocol and ports flushed with saline Post-procedure: Blood cleaned with CHG and sterile caps on all hubs Assessment: Blood return through all ports Patient tolerance: Patient tolerated the procedure well with no immediate complications ARTERIAL LINE Routine 02/07/2019 8:24 AM CDT Procedure Note - Enrike Acevedo - 02/07/2019 8:24 AM CDT Arterial line Performed by: Enrike Acevedo Authorized by: Enrike Acevedo Patient Location: OR Staff: Anesthesiologist: Enrike Acevedo Resident/TREATMENT PLANT MECHANIC/AA: Enedelia Yoon MD Performed by: Resident/TREATMENT PLANT MECHANIC/AA Pre-procedure: patient identified, IV checked, site and side verified, risks and benefits discussed, procedure verified, surgical consent complete, patient position confirmed, monitors and equipment checked and pre-op evaluation complete MSBT: antiseptic used, all elements of maximal sterile barrier technique followed, hand hygiene performed, cap/gown used by other personnel and solutions labeled Indications: Indications: multiple ABGs and hemodynamic monitoring Anesthesia: Anesthesia: General Procedure Details: Arterial Line placement: Placed post induction Line placement site: Radial Arterial line gauge: 20 G Number of attempts: 1 Ultrasound guidance used: No Post-procedure: Post-procedure: Sterile dressing applied Post procedure circulation, sensation, movement: Unable to assess Patient tolerance: Patient tolerated the procedure well with no immediate complications UT AN ELECTIVE ENDOTRACHEAL AIRWAY Routine 02/07/2019 8:20 AM CDT Procedure Note - Enrike Acevedo - 02/07/2019 8:20 AM CDT Airway Performed by: Enrike Acevedo Authorized by: Enrike Acevedo Location: OR Urgency: Elective Difficult Airway: No Anesthesiologist: Enrike Acevedo Performed by: anesthesiologist Preoxygenated with 100% O2: Yes C-spine Precautions Maintained Throughout: No Mask Ventilation: Easy mask Final Airway Type: Endotracheal airway Final Endotracheal Airway: ETT and ETT - double lumen left Cuffed: Yes Technique Used: Direct laryngoscopy Devices/Methods Used in Placement: Intubating stylet Insertion Site: Oral Blade Type: Luis Laryngoscope Blade/Videolaryngoscope Blade Size: 2 ETT Double Lumen (fr): 39 Measured from: Gums ETT to Gums (cm): 22 Placement Verified by: fiber optic visualization Laryngoscopic view: Grade IIa - partial view of glottis Rapid Sequence Induction (RSI): No Modified RSI: No Number of Attempts at Approach: 1 SODIUM LEVEL, SYRINGE STAT 02/07/2019 8:05 Results for this AM CDT procedure are in the results section. ARTERIAL BLOOD GAS, STAT 02/07/2019 8:05 Results for this CORRECTED AM CDT procedure are in the results section. POTASSIUM, SYRINGE STAT 02/07/2019 8:05 Results for this AM CDT procedure are in the results section. HEMOGLOBIN, SYRINGE STAT 02/07/2019 8:05 Results for this AM CDT procedure are in the results section. IONIZED CALCIUM, STAT 02/07/2019 8:05 Results for this ARTERIAL AM CDT procedure are in the results section. GLUCOSE LEVEL, SYRINGE STAT 02/07/2019 8:05 Results for this AM CDT procedure are in the results section. ACTIVATED CLOTTING Routine 02/07/2019 8:04 Results for this TIME AM CDT procedure are in the results section. FERRITIN LEVEL Routine 01/24/2019 1:44 Results for this PM CDT procedure are in the results section. LIPID PANEL Routine 01/24/2019 1:44 Results for this PM CDT procedure are in the results section. B NATRIURETIC PEPTIDE Routine 01/24/2019 1:32 Nonrheumatic aortic Results for this PM CDT valve stenosis procedure are in Pre-op evaluation the results section. URINALYSIS SCREEN AND Routine 01/24/2019 1:10 Nonrheumatic aortic Results for this MICROSCOPY, WITH PM CDT valve stenosis procedure are in REFLEX TO CULTURE Pre-op evaluation the results section. URINE CULTURE Routine 01/24/2019 1:10 Results for this PM CDT procedure are in the results section. ECG 12-LEAD Routine 01/24/2019 12:56 Nonrheumatic aortic Results for this PM CDT valve stenosis procedure are in Pre-op evaluation the results section. PREPARE RBC Routine 01/24/2019 12:47 Results for this PM CDT procedure are in the results section. PREPARE RBC Routine 01/24/2019 12:47 Results for this PM CDT procedure are in the results section. ESTIMATED GFR Routine 01/24/2019 12:47 Results for this PM CDT procedure are in the results section. HC COMPLETE BLD COUNT Routine 01/24/2019 12:47 Nonrheumatic aortic Results for this W/AUTO DIFF PM CDT valve stenosis procedure are in Pre-op evaluation the results section. COMPREHENSIVE Routine 01/24/2019 12:47 Nonrheumatic aortic Results for this METABOLIC PANEL PM CDT valve stenosis procedure are in Pre-op evaluation the results section. PROTHROMBIN TIME WITH Routine 01/24/2019 12:47 Nonrheumatic aortic Results for this INR PM CDT valve stenosis procedure are in Pre-op evaluation the results section. PARTIAL THROMBOPLASTIN Routine 01/24/2019 12:47 Nonrheumatic aortic Results for this TIME (PTT) PM CDT valve stenosis procedure are in Pre-op evaluation the results section. HEMOGLOBIN A1C Routine 01/24/2019 12:47 Nonrheumatic aortic Results for this PM CDT valve stenosis procedure are in Pre-op evaluation the results section. TYPE AND SCREEN Routine 01/24/2019 12:47 Nonrheumatic aortic Results for this PM CDT valve stenosis procedure are in Pre-op evaluation the results section. LIPID PANEL Routine 01/24/2019 12:28 Nonrheumatic aortic Results for this PM CDT valve stenosis procedure are in Pre-op evaluation the results section. FERRITIN LEVEL Routine 01/24/2019 12:28 Nonrheumatic aortic Results for this PM CDT valve stenosis procedure are in Pre-op evaluation the results section. TOTAL IRON BINDING Routine 01/24/2019 12:28 Nonrheumatic aortic Results for this CAPACITY PM CDT valve stenosis procedure are in Pre-op evaluation the results section. FOLATE LEVEL Routine 01/24/2019 12:28 Nonrheumatic aortic Results for this PM CDT valve stenosis procedure are in Pre-op evaluation the results section. VITAMIN B12 LEVEL Routine 01/24/2019 12:28 Nonrheumatic aortic Results for this PM CDT valve stenosis procedure are in Pre-op evaluation the results section. XR CHEST 2 VW Routine 01/24/2019 12:23 Nonrheumatic aortic Results for this PM CDT valve stenosis procedure are in Pre-op evaluation the results section. CV CTA TAVR WORKUP Routine 01/24/2019 10:37 Nonrheumatic aortic Results for this (CTA CORONARY,CTA AM CDT valve stenosis procedure are in THORACIC AORTA,CTA the results ABDOMEN PELVIS) W section. CONTRAST ESTIMATED GFR Routine 01/24/2019 9:58 Results for this AM CDT procedure are in the results section. POC CREATININE Routine 01/24/2019 9:58 Results for this AM CDT procedure are in the results section. ECG 12-LEAD Routine 01/24/2019 9:27 Results for this AM CDT procedure are in the results section. US CAROTID DUPLEX Routine 01/24/2019 8:25 Nonrheumatic aortic Results for this BILATERAL AM CDT valve stenosis procedure are in Coronary artery the results disease involving section. [place] coronary artery of [place] heart, angina presence unspecified ECHOCARDIOGRAM 2D Routine 01/03/2019 11:45 Nonrheumatic aortic Results for this COMPLETE W MMODE AM CDT valve stenosis procedure are in SPECTRAL COLOR DOPPLER Coronary artery the results (23463) disease involving section. [place] coronary artery of [place] heart, angina presence unspecified SPIROMETRY, DIFFUSION Routine 01/03/2019 8:17 Nonrheumatic aortic Results for this AM CDT (valve) stenosis procedure are in the results section. after 03/24/2018 Results XR Chest 2 Vw (03/07/2019 10:41 AM CDT)Only the most recent of2 resultswithin the time period is included. Specimen Narrative Performed At EXAMINATION:XR CHEST 2 VW RADIANT CLINICAL HISTORY:I35.0 Nonrheumatic aortic (valve) stenosis, Routine CXR pre-op69 yrs COMPARISON:Chest x-ray 02/15/2019 IMPRESSION: Frontal and lateral views reveal a stable cardiomediastinal silhouette status post median sternotomy and aortic valve repair. Right basilar opacification has improved. In addition, left basilar opacification and right chest wall subcutaneous emphysema have since resolved. The remainder of the examination is stable in appearance. [facility]-[id number] Procedure Note Hm Interface, Radiology Results Incoming - 03/07/2019 10:49 AM CDT EXAMINATION: XR CHEST 2 VW CLINICAL HISTORY: I35.0 Nonrheumatic aortic (valve) stenosis, Routine CXR pre- op 70 yrs COMPARISON: Chest x-ray 02/15/2019 IMPRESSION: Frontal and lateral views reveal a stable cardiomediastinal silhouette status post median sternotomy and aortic valve repair. Right basilar opacification has improved. In addition, left basilar opacification and right chest wall subcutaneous emphysema have since resolved. The remainder of the examination is stable in appearance. [facility]-[id number] Performing Organization Address [facility] Phone Number [facility] [address] [place] [address] XR Chest 1 Vw Portable (02/15/2019 11:21 AM CDT)Only the most recent of10 resultswithin the time period is included. Specimen Narrative Performed At EXAMINATION: XR CHEST 1 VW PORTABLE RADIANT INDICATION: cough COMPARISON: None IMPRESSION: Stable appearance of the heart and mediastinum. Prior aortic valvular replacement and sternotomy. Subcutaneous emphysema of the right chest wall with a tiny right apical pneumothorax without significant interval change. Mild elevation of the right hemidiaphragm with small bilateral pleural effusions and bibasilar atelectasis. No significant change since previous examination. [facility]-[id number] Procedure Note Hm Interface, Radiology Results Incoming - 02/15/2019 11:29 AM CDT EXAMINATION: XR CHEST 1 VW PORTABLE INDICATION: cough COMPARISON: None IMPRESSION: Stable appearance of the heart and mediastinum. Prior aortic valvular replacement and sternotomy. Subcutaneous emphysema of the right chest wall with a tiny right apical pneumothorax without significant interval change. Mild elevation of the right hemidiaphragm with small bilateral pleural effusions and bibasilar atelectasis. No significant change since previous examination. [facility]-[id number] Performing Organization Address [facility] Phone Number [facility] [address] [place] [address] Estimated GFR (02/14/2019 4:19 AM CDT)Only the most recent of10 resultswithin the time period is included. Estimated GFR >=90 mL/min/1.73 [facility] Comment: HOSPITAL CatergoryUnitsInterpretation G1 >=90 Normal or high G2 60-89Mildly decreased E0e61-47Pipnlv to moderately decreased O7n51-82Zhllpgnned to severely decreased G4 15-29Severely decreased G5 <15Kidney failure The eGFR was calculated using the Chronic Kidney Disease Epidemiology Collaboration (CKD-EPI) equation. Interpretation is based on recommendations of the National Kidney Foundation-Kidney Disease Outcomes Quality Initiative (NKF-KDOQI) published in 2014. Specimen Plasma specimen Performing Organization Address City/State/Zipcode Phone Number [facility] DEPARTMENT OF PATHOLOGY AND [address] [place] [address] [address] CBC with platelet and differential (02/14/2019 4:19 AM CDT)Only the most recent of6 resultswithin the time period is included. WBC 12.19 (H) 4.50 - 11.00 [facility] k/uL HOSPITAL RBC 3.20 (L) 4.20 - 5.50 [facility] m/uL [facility] HGB 9.8 (L) 12.0 - 16.0 [facility] g/dL [facility] HCT 30.3 (L) 37.0 - 47.0 % [facility] MCV 94.7 82.0 - 100.0 [facility] MCH 30.6 27.0 - 34.0 pg [facility] MCHC 32.3 31.0 - 37.0 [facility] RDW - SD 47.2 37.0 - 55.0 fL [facility] MPV 9.8 8.8 - 13.2 fL [facility] Platelet count 280 150 - 400 k/uL [facility] Nucleated RBC 0.20 /100 WBC [facility] Neutrophils 68.8 39.0 - 69.0 % [facility] Lymphocytes 16.1 (L) 25.0 - 45.0 % [facility] Monocytes 10.8 (H) 0.0 - 10.0 % [facility] Eosinophils 3.0 0.0 - 5.0 % [facility] Basophils 0.6 0.0 - 1.0 % [facility] Immature granulocytes 0.7Comment: 0.0 - 1.0 % [facility] "Immature [facility] granulocytes" (promyelocytes , myelocytes, metamyelocytes ) Specimen Blood Performing Organization Address City/State/Zipcode Phone Number [facility] DEPARTMENT OF PATHOLOGY AND [address] [place] [address] [address] Magnesium level (02/14/2019 4:19 AM CDT)Only the most recent of10 resultswithin the time period is included. Pathologist [facility] Magnesium 2.2 1.6 - 2.4 mg/dL [facility] Specimen Plasma specimen Performing Organization Address City/[facility]/Zipcode Phone Number [facility] DEPARTMENT OF PATHOLOGY AND [address] [place] [address] Basic metabolic panel (02/14/2019 4:19 AM CDT)Only the most recent of8 resultswithin the time period is included. Sodium 143 135 - 148 mEq/L [facility] Potassium 4.1 3.5 - 5.0 mEq/L [facility] Chloride 104 98 - 112 mEq/L [facility] CO2 25 24 - 31 mEq/L [facility] Anion gap 14@ANIO 7 - 15 mEq/L [facility] BUN 5 (L) 8 - 23 mg/dL [facility] Creatinine 0.50 0.50 - 0.90 mg/dL [facility] Glucose 105 (H) 65 - 99 mg/dL [facility] Calcium 8.7 (L) 8.8 - 10.2 mg/dL [facility] Specimen Plasma specimen Performing Organization Address City/[facility]/Zipcode Phone Number [facility] DEPARTMENT OF PATHOLOGY AND [address] [place] [address] Echocardiogram complete w contrast and 3D if needed (02/12/2019 7:15 PM CDT) Specimen Narrative Performed At [facility] Echocardiography Report [address] [facility] [address], [place] [address] Pat.Name:LOUIS JOSEPH Pat.ID:[id number] .Date: 02/12/2019Refer.MD:REHANA MULLINS MD Exam Time: 6:06:00 PMStudy Type:Routine Echo Height:64inWeight: 158lb BSA: 1.77 m2 DOBAge:1945,73Y Sex: FEMALEBP:147/66 HR:78 bpmSonogrphr: Sushila Dasilva RDCS Pat. Stat.:Inpatient Room:[address] Study Status:Final Echo Event ID:[id number] Order ID:[id number] Reason for Study:S/P MICS AVR History / Clinical:Hyperlipidemia, Hypertension Procedures:2D Echo, Colorflow Doppler, Portable, Intravenous Optison Contrast Race:C SUMMARY: LV EF is normal.Overall wall motion is normal. Normal prosthetic valve velocity and gradient. FINDINGS: LV: LV size is normal. LV EF is normal. Overall wall motion is normal.Estimated EF is 60-64%. RV: RV size is normal. RV systolic function is normal. LA: LA volume is moderately enlarged. RA: RA volume is mildly enlarged. AO: Aortic root diameter is normal. DARYA: No pericardial effusion. AV: Prosthetic aortic valve. A trace of aortic regurgitation. Normalprosthetic valve velocity and gradient. Surgical ProstheticAV Doppler velocity index is 0.55 (normal>0.25). MV: No structural MV abnormalities noted. A trace of mitral regurgitation. PV: No structural PV abnormalities noted. A trace of pulmonic regurgitation. TV: No structural TV abnormalities noted. Mild tricuspid regurgitation Barr: Diastolic dysfunction Grade II (Moderate): Impaired relaxationwith elevated LV filling pressures. Other:Suboptimal/insufficient TR jet. Estimated PA systolic pressureis at least 32 mmHg, assuming a mean RAP of 5 mmHg. MEASUREMENTS: 2D Parasternal [place] LVOT 1.9 cmLA Ds4 cm LVIDd4.1 cmIndex2.3 cm/m Ao An2 cm LVIDs1.9 cmAo Rtd 2.6 cm Index1.5 cm/m LV%fs 53.7 % LV Qcar133.3 g(87-129) IVSd 1.1 cmLVM Index 85.5 g/m2 LVPWd1.1 cmRWT0.5 LA Sng Plane LA Area 23.1 cm2(8.8-23.4) LA Vol68.9 ml Index38.9 ml/m LA LngAx 6.5 cm RA Sng Plane RA Area 21.8 cm2(8.3-19.5) RA Vol66.5 ml Index37.6 ml/m RA LngAx 6 cm DOPPLER AV For Flow/LISSA AV pkVel 266 cm/s (100-170) AV AC/ET 0.3 AV mnVel 180.3 cm/Fabián TVI50.9 cm AV pkPG 28.3 mmHgAVpkAcRt 54007.6 cm/s2 AV Mean G 15.3 mmHgAV XbAb778 cm/s2 AV AC 74 msec (83-118) AV Area1.7 cm2(3-5) AV ET282 msec LVOT For Flow LVOT Area3.1 cm2 LVOT SV 86.2 ml GYBYjrHkz309.3 cm/sHR76.7 bpm LVOTpkPG 7 mmHgLVOT CO6.6 l/min LVOTmnPG 3.3 mmHgLVOT CI3.7 l/m/m2 LVOT TVI27.5 cm Signed 02/13/2019 01:39 PM Sriram Brewer M.D. Procedure Note Interface, Radiology Results In - 02/13/2019 1:39 PM CDT Echocardiography Report [address] [place] [address] Pat.Name: LOUIS JOSEPH Pat.ID: [id number] .Date: 02/12/2019 Refer.MD: REHANA MULLINS MD Exam Time: 6:06:00 PM Study Type:Routine Echo Height: 64in Weight: 158lb BSA: 1.77 m2 Age: 1 1945,73Y Sex: FEMALE BP: 147/66 HR: 78 bpm Sonogrphr: Sushila Dasilva RDCS Pat. Stat.:Inpatient Room: [address] Study Status:Final Echo Event ID:[id number] Order ID: [id number] Reason for Study:S/P MICS AVR History / Clinical:Hyperlipidemia, Hypertension Procedures:2D Echo, Colorflow Doppler, Portable, Intravenous Optison Contrast Race: C SUMMARY: LV EF is normal. Overall wall motion is normal. Normal prosthetic valve velocity and gradient. FINDINGS: LV: LV size is normal. LV EF is normal. Overall wall motion is normal. Estimated EF is 60-64%. RV: RV size is normal. RV systolic function is normal. LA: LA volume is moderately enlarged. RA: RA volume is mildly enlarged. AO: Aortic root diameter is normal. DARYA: No pericardial effusion. AV: Prosthetic aortic valve. A trace of aortic regurgitation. Normal prosthetic valve velocity and gradient. Surgical Prosthetic AV Doppler velocity index is 0.55 (normal>0.25). MV: No structural MV abnormalities noted. A trace of mitral regurgitation. PV: No structural PV abnormalities noted. A trace of pulmonic regurgitation. TV: No structural TV abnormalities noted. Mild tricuspid regurgitation Barr: Diastolic dysfunction Grade II (Moderate): Impaired relaxation with elevated LV filling pressures. Other: Suboptimal/insufficient TR jet. Estimated PA systolic pressure is at least 32 mmHg, assuming a mean RAP of 5 mmHg. MEASUREMENTS: 2D Parasternal [place] LVOT 1.9 cm LA Ds 4 cm LVIDd 4.1 cm Index 2.3 cm/m Ao An 2 cm LVIDs 1.9 cm Ao Rtd 2.6 cm Index 1.5 cm/m LV%fs 53.7 % LV Mass 151.3 g (87-129) IVSd 1.1 cm LVM Index 85.5 g/m2 LVPWd 1.1 cm RWT 0.5 LA Sng Plane LA Area 23.1 cm2 (8.8-23.4) LA Vol 68.9 ml Index 38.9 ml/m LA LngAx 6.5 cm RA Sng Plane RA Area 21.8 cm2 (8.3-19.5) RA Vol 66.5 ml Index 37.6 ml/m RA LngAx 6 cm DOPPLER AV For Flow/LISSA AV pkVel 266 cm/s (100-170) AV AC/ET 0.3 AV mnVel 180.3 cm/s AV TVI 50.9 cm AV pkPG 28.3 mmHg AVpkAcRt 59423.6 cm/s2 AV Mean G 15.3 mmHg AV DeRt 942 cm/s2 AV AC 74 msec (83-118) AV Area 1.7 cm2 (3-5) AV ET 282 msec LVOT For Flow LVOT Area 3.1 cm2 LVOT SV 86.2 ml LVOTpkVel 132.3 cm/s HR 76.7 bpm LVOTpkPG 7 mmHg LVOT CO 6.6 l/min LVOTmnPG 3.3 mmHg LVOT CI 3.7 l/m/m2 LVOT TVI 27.5 cm Signed 02/13/2019 01:39 PM Sriram Brewer M.D. Performing Organization Address City/[facility] Phone Number [facility] [address] [place] [address] Prepare RBC (02/12/2019 11:00 AM CDT)Only the most recent of3 resultswithin the time period is included. Product name Red Blood Cells [facility]-1, Leukored [facility] Unit number [id number] [facility] Product code [id number] [facility] Dispense status Transfused [facility] Blood expiration [facility] Blood type code 5100 [facility] Blood type O POSITIVE [facility] Specimen Performing Organization Address [facility] Phone Number [facility] DEPARTMENT OF PATHOLOGY AND [address] [facility]. [place], [place] [address] [place] [address] Type and screen (02/12/2019 11:00 AM CDT)Only the most recent of2 resultswithin the time period is included. ABO grouping O [facility] Rh type POS [facility] Antibody screen (gel) NEG [facility] Specimen Performing Organization Address City/[facility] Phone Number [facility] DEPARTMENT OF PATHOLOGY AND [address] [place] [phone] CBC hemogram (02/12/2019 1:00 AM CDT)Only the most recent of3 resultswithin the time period is included. WBC 8.88 4.50 - 11.00 k/uL [facility] RBC 2.35 (L) 4.20 - 5.50 m/uL [facility] HGB 7.1 (L) 12.0 - 16.0 g/dL [facility] HCT 22.2 (L) 37.0 - 47.0 % [facility] MCV 94.5 82.0 - 100.0 fL [facility] MCH 30.2 27.0 - 34.0 pg [facility] MCHC 32.0 31.0 - 37.0 g/dL [facility] RDW - SD 46.2 37.0 - 55.0 fL [facility] MPV 10.6 8.8 - 13.2 fL [facility] Platelet count 172 150 - 400 k/uL [facility] Nucleated RBC 0.30 /100 WBC [facility] Specimen Blood Performing Organization Address City/[facility] Phone Number [facility] DEPARTMENT OF PATHOLOGY AND [address] [place] [id number] [place] [address] Phosphorus level (02/12/2019 12:00 AM CDT)Only the most recent of8 resultswithin the time period is included. Phosphorus 3.5 2.4 - 4.5 mg/dL [facility] Specimen Plasma specimen Performing Organization Address City/[facility]/Zipcode Phone Number [facility] DEPARTMENT OF PATHOLOGY AND [address] [place] [id number] [place] [address] Ionized calcium (02/12/2019 12:00 AM CDT)Only the most recent of6 resultswithin the time period is included. [facility] pH 7.54 [facility] Ionized calcium 1.07 (L) 1.11 - 1.32 [facility] mmol/L HOSPITAL Specimen Plasma specimen Performing Organization Address [facility] Phone Number [facility] DEPARTMENT OF PATHOLOGY AND [address] [place] [address] POC glucose (02/11/2019 11:44 AM CDT)Only the most recent of26 resultswithin the time period is included. [facility] POC glucose 130 (H) 65 - 99 mg/dL [facility] Comment: [facility] Notified RN Meter ID: [id number] Room Cooler Installer: Jignesh Holbrook Specimen Performing Organization Address [facility] Phone Number [facility] DEPARTMENT OF PATHOLOGY AND [address] [place] [address] Potassium level (02/10/2019 10:30 AM CDT)Only the most recent of2 resultswithin the time period is included. [facility] Potassium 3.8 3.5 - 5.0 mEq/L [facility] Specimen Plasma specimen Performing Organization Address [facility] Phone Number [facility] DEPARTMENT OF PATHOLOGY AND [address] [place] [address] ECG 12 lead (02/10/2019 10:25 AM CDT)Only the most recent of8 resultswithin the time period is included. Ventricular rate 90 [facility]USE Atrial rate 78 [facility] QRSD interval 120 [facility] QT interval 358 [facility] QTC interval 437 [facility] MUSE QRS axis 1 4 [facility] MUSE T wave axis 165 [facility] MUSE EKG impression Atrial fibrillation with a competing junctional pacemaker with premature ventricular or aberrantly conducted complexes-Left ventricular hypertrophy with QRS widening-ST & T wave abnormality, conside [facility] MUSE r inferolateral ischemia or digitalis effect-Abnormal ECG-In automated comparison with ECG of 10-FEB-2019 02:27,-Atrial fibrillation has replaced Sinus rhythm-Minimal criteria for Septal infarct are no longer present-ST less elevated in Lateral leads-T wave inversion now evident in Lateral leads- Specimen Narrative Performed At Performing Organization Address City/[facility] Phone Number [facility] MUSE [address] [place] [phone] Hemoglobin & hematocrit (02/10/2019 6:03 AM CDT)Only the most recent of4 resultswithin the time period is included. HGB 7.3 (L) 12.0 - 16.0 g/dL [facility] HCT 22.8 (L) 37.0 - 47.0 % [facility] Specimen Blood Performing Organization Address City/[facility] Phone Number [facility] DEPARTMENT OF PATHOLOGY AND [address] [place] [id number] [place] [phone] Arterial blood gas (02/09/2019 1:45 AM CDT)Only the most recent of2 resultswithin the time period is included. Pathologist [facility] pH, arterial 7.42 7.35 - 7.45 [facility] pCO2, arterial 36 35 - 45 mmHg [facility] pO2, arterial 88 80 - 90 mmHg [facility] Bicarbonate, arterial 22.7 21.0 - 28.0 [facility] mmol/L HOSPITAL Base excess, arterial -1 -2 - 2 mEq/L [facility] O2 saturation, 97 95 - 100 % [facility] Specimen Blood Performing Organization Address [facility] Phone Number [facility] DEPARTMENT OF PATHOLOGY AND [address] [place] [phone] [place] [phone] Troponin (02/09/2019 12:22 AM CDT)Only the most recent of2 resultswithin the time period is included. Troponin 1.078 (H) 0.000 - 0.040 [facility] Comment: ng/[facility] changed methodology effective: 12/18/2018 at 10:00 am The new method has a 99th percentile cutoff of 0.040 ng/mL Specimen Plasma specimen Performing Organization Address City/[facility] Phone Number [facility] DEPARTMENT OF PATHOLOGY AND [address] [place] [phone] [place] [address] Partial thromboplastin time, activated (02/08/2019 12:05 AM CDT)Only the most recent of3 resultswithin the time period is included. Pathologist [facility] PTT 34.7 23.0 - 36.0 [facility] Comment: [facility] PTT therapeutic range for unfractionated heparin is 61.0-112.0 seconds which corresponds to Anti-Xa 0.3-0.7 U/ml. Specimen Blood Performing Organization Address City/[facility] Phone Number [facility] DEPARTMENT OF PATHOLOGY AND [address] [place] [phone] [place] [address] Prothrombin time with INR (02/08/2019 12:05 AM CDT)Only the most recent of3 resultswithin the time period is included. [facility] Prothrombin time 15.5 (H) 11.5 - 14.5 [facility] INR 1.3 [facility] Comment: BUDDHIST The International Normalized Ratio (INR) is a therapeutic HOSPITAL monitoring tool for patients who are stable on oral anticoagulant therapy. An INR of 2.0-3.0 is suggested for deep vein thrombosis/pulmonary embolism. Specimen Blood Performing Organization Address City/[facility]ode Phone Number [facility] DEPARTMENT OF PATHOLOGY AND [address] [place] [phone] Surgical pathology request (02/07/2019 3:15 PM CDT) [facility] DEPARTMENT OF PATHOLOGY AND GENOMIC MEDICINE Surgical pathology See link below [facility] DEPARTMENT OF report for PDF Lab PATHOLOGY AND Report GENOMIC MEDICINE Result status This is Final [facility] DEPARTMENT OF Report for PATHOLOGY AND [id number] [facility]ICINE Specimen Performing Organization Address City/[facility]/Zipcode Phone Number [facility] DEPARTMENT OF PATHOLOGY AND [address] [place] [address] MEDICINE Ionized calcium, arterial (02/07/2019 1:14 PM CDT)Only the most recent of4 resultswithin the time period is included. Ionized calcium, 1.03 (L) 1.11 - 1.32 [facility] arterial mmol/L [facility] Specimen Blood Performing Organization Address City/[facility] Phone Number [facility] DEPARTMENT OF PATHOLOGY AND [address] [place] [address] Sodium level, syringe (02/07/2019 12:34 PM CDT)Only the most recent of3 resultswithin the time period is included. Sodium, syringe 140 135 - 148 mEq/L [facility] Specimen Blood Performing Organization Address [facility] Phone Number [facility] DEPARTMENT OF PATHOLOGY AND [address] [place] [address] Potassium, syringe (02/07/2019 12:34 PM CDT)Only the most recent of3 resultswithin the time period is included. Potassium, syringe 3.4 (L) 3.5 - 5.0 mEq/L [facility] Specimen Blood Performing Organization Address [facility] Phone Number [facility] DEPARTMENT OF PATHOLOGY AND [address] [place] [phone] Hemoglobin, syringe (02/07/2019 12:34 PM CDT)Only the most recent of3 resultswithin the time period is included. Hemoglobin, syringe 10.4 (L) 12.0 - 16.0 g/dL [facility] Specimen Blood Performing Organization Address City/[facility]/Zipcode Phone Number [facility] DEPARTMENT OF PATHOLOGY AND [address] [place] [phone] Glucose level, syringe (02/07/2019 12:34 PM CDT)Only the most recent of3 resultswithin the time period is included. Glucose, syringe 175 (H) 65 - 99 mg/dL [facility] Specimen Blood Performing Organization Address City/[facility]/Zipcode Phone Number [facility] DEPARTMENT OF PATHOLOGY AND [address] [place] [address] Arterial blood gas, corrected (02/07/2019 12:34 PM CDT)Only the most recent of3 resultswithin the time period is included. pH, arterial 7.31 (L) 7.35 - 7.45 [facility] pCO2, arterial 42 35 - 45 mmHg [facility] pO2, arterial 280 (H) 80 - 90 mmHg [facility] Temperature, Celsius 37.0 Degrees C [facility] O2 saturation, 99 95 - 100 % [facility] arterial HOSPITAL pH, arterial 7.31 [facility]OSPITAL pCO2, arterial 42 mmHg [facility] pO2, arterial 280 mmHg [facility]OS[facility]ITAL Base excess, arterial -5 (L) -2 - 2 mEq/L [facility] Specimen Blood Performing Organization Address City/[facility] Phone Number [facility] DEPARTMENT OF PATHOLOGY AND [address] [place] [address] Pv transcranial Doppler intracranial arteries emboli detect wo inj (TCD w monitoring) (02/07/2019 12:30 PM CDT) Specimen Narrative Performed At [facility] Vascular Ultrasound Laboratory Transcranial Doppler Report (TCD) [address] [place] [address] Pat.Name:LOUIS JOSEPH Pat.ID:[id number] .Date: 02/07/2019 Refer.MD:REHANA MULLINS MD Exam Time: 8:24:00 AMStudy Type:TCD DOBAge:1945,73YSex: FEMALE Sonogrphr: Sudhir Rausch MDTapeVol: ST, CPT - 4: 33640 Echo Event ID:[id number] Order ID:[id number] Reason for Study:Intraoperative TCD monitoring for minimally invasive aortic valve replacement using Perceval medium valve. History of hypertension. Procedures:Colorflow, Pulsed wave Doppler Race:C SUMMARY: TECHNIQUE: Transcranial Doppler was used to monitor the brain through the temporal lobe. The right MCA was insonated. PHYSICIAN INTERPRETATION: Minimal emboli during CPB flow. No malperfusion detected. Signed 02/08/2019 11:32 PM Sudhir Rausch MD, JANAY Procedure Note Interface, Radiology Results In - 02/08/2019 11:32 PM CDT Vascular Ultrasound Laboratory Transcranial Doppler Report (TCD) [address] [place] [address] Pat.Name: LOUIS JOSEPH Pat.ID: [id number] .Date: 02/07/2019 Refer.MD: REHANA MULLINS MD Exam Time: 8:24:00 AM Study Type:TCD Age: 1 1945,73Y Sex: FEMALE Sonogrphr: Sudhir Rausch MD Tape Vol: , [facility] - 4: 13028 Echo Event ID:[id number] Order ID: [id number] Reason for Study:Intraoperative TCD monitoring for minimally invasive aortic valve replacement using Perceval medium valve. History of hypertension. Procedures:Colorflow, Pulsed wave Doppler Race: C SUMMARY: TECHNIQUE: Transcranial Doppler was used to monitor the brain through the temporal lobe. The right MCA was insonated. PHYSICIAN INTERPRETATION: Minimal emboli during CPB flow. No malperfusion detected. Signed 02/08/2019 11:32 PM Sudhir Rausch MD, JENNIFFER Performing Organization Address City/State/Zipcode Phone Number [facility] [address] [place] [address] Activated clotting time (02/07/2019 12:13 PM CDT)Only the most recent of4 resultswithin the time period is included. Activated clotting 122 96 - 152 sec [facility] BUDDHIST time Comment: HOSPITAL Meter ID: [id number] Room Cooler Installer: To [place] Specimen Performing Organization Address City/[facility] Phone Number [facility] DEPARTMENT OF PATHOLOGY AND [address] [place] [address] [place] [id number] [place] [address] Ferritin level (01/24/2019 1:44 PM CDT)Only the most recent of2 resultswithin the time period is included. Ferritin level 96 13 - 150 ng/mL [facility] Specimen Plasma specimen Performing Organization Address [facility] Phone Number [facility] DEPARTMENT OF PATHOLOGY AND [address] [place] [address] [facility] [address] [place] [address] Lipid panel (01/24/2019 1:44 PM CDT)Only the most recent of2 resultswithin the time period is included. Cholesterol 184 <200 mg/dL [facility] Triglycerides 172 (H) <150 mg/dL [facility] HDL cholesterol 48 >40 mg/dL [facility] LDL cholesterol 115 (H)Comment: <100 mg/dL [facility] Result obtained by BUDDHIST direct [facility] measurement Lipid [facility] Comment: BUDDHIST Total Cholesterol (mg/dL) [facility] <200 Desirable 353-038Sohskjshmo-yuki >=240High Triglycerides (mg/dL) <150 Normal [phone]-aqio 200-499High >=500Very high HDL Cholesterol (mg/dL) <40Low (male) <40Low (female) LDL Cholesterol (mg/dL) <100 Optimal 100-129Near or above optimal 405-545Vjnjhxhqpn-vysr 160-189High >=190Very high Risk Catergories that modify LDL goals. Risk CatergoriesLDL goal (mg/dL) CHD and CHD risk equivalent<100 (10-year risk >20%) Multiple (2+) risk factors <130 (10-year risk=<20%) 0-1 risk factors <160 (<10-year risk) Defining levels of lipids in metabolic syndrome Triglycerides>=150 mg/dL HDL Cholesterol Men<40 mg/dL Women<40 mg/dL Non-HDL cholesterol is a second target for therapy in persons with high triglycerides (>=200 mg/dL) Specimen Plasma specimen Performing Organization Address [facility]/Zipcode Phone Number [facility] DEPARTMENT OF PATHOLOGY AND [address] [place] [phone] [address] B natriuretic peptide (01/24/2019 1:32 PM CDT) BNP 139 (H) 0 - 100 pg/mL [facility] Specimen Blood Performing Organization Address City/[facility] Phone Number [facility] DEPARTMENT OF PATHOLOGY AND [address] [place] [phone] [address] Urinalysis screen and microscopy, with reflex to culture (01/24/2019 1:10 PM CDT) Specimen site Clean catch [facility] Color, UA Straw [facility] Appearance, UA Clear [facility] Specific gravity, UA 1.034 1.001 - 1.035 [facility] pH, UA 6.0 5.0 - 8.5 [facility] Protein, UA Negative Negative [facility] Glucose, UA Negative Negative [facility] Ketones, UA Negative Negative [facility] Bilirubin, UA Negative Negative [facility] Blood, UA Small (A) Negative [facility] Nitrite, UA Negative Negative [facility] Urobilinogen, UA <2.0 <2.0 [facility] Leukocyte esterase, Negative Negative [facility] Epithelial cells, UA 1 /HPF [facility] WBC, UA 1 0 - 4 /HPF [facility] RBC, UA 1 0 - 5 /HPF [facility] Bacteria, UA None seen None seen [facility] Yeast, UA None seen [facility] Yeast with None seen [facility] pseudohyphae, HOSPITAL Specimen Urine Performing Organization Address City/[facility] Phone Number [facility] DEPARTMENT OF PATHOLOGY AND [address] [place] [phone] [address] Urine culture (01/24/2019 1:10 PM CDT) Urine culture SEE COMMENTComment: [facility] Bacteriuria screen HOSPITAL negative. Specimen Performing Organization Address City/[facility]/Zipcode Phone Number [facility] DEPARTMENT OF PATHOLOGY AND [address] [place] [address] [place] [phone] [place] [address] Hemoglobin A1c (01/24/2019 12:47 PM CDT) Hemoglobin A1C 5.9 (H) 4.0 - 5.6 % [facility] Comment: HOSPITAL HbA1c cutoffs for diagnosing diabetes: 4.0% - 5.6%=normal 5.7% - 6.4%=increased risk for diabetes (prediabetes) >=6.5%=diabetes Goals for glycemic control (ADA 2016) < 7.0%Target for non adults with diabetes. More or less stringent targets may be appropriate for individual patients. <7.5% Target for Children and adolescents with type 1 diabetes. Specimen Blood Performing Organization Address City/State/Zipcode Phone Number [facility] DEPARTMENT OF PATHOLOGY AND [address] [place] [address] Comprehensive metabolic panel (01/24/2019 12:47 PM CDT) Sodium 141 135 - 148 [facility] mEq/L [facility] Potassium 3.6 3.5 - 5.0 [facility] mEq/L [facility] Chloride 101 98 - 112 mEq/L [facility] CO2 26 24 - 31 mEq/L [facility] Anion gap 14@ANIO 7 - 15 mEq/L [facility] BUN 9 8 - 23 mg/dL [facility] Creatinine 0.54 0.50 - 0.90 [facility] mg/dL HOSPITAL Glucose 145 (H) 65 - 99 mg/dL [facility] Calcium 9.1 8.8 - 10.2 [facility] mg/dL [facility]OSPITAL Protein 7.6 6.3 - 8.3 g/dL [facility] Comment: HOSPITAL [place] 4.6-7.0 g/dL 1 week 4.4-7.6 g/dL 7 months-1year5.1-7.3 g/dL 1-2 years5.6-7.5 g/dL >3 years6.0-8.0 g/dL 18-150 6.3-8.3 g/dL Albumin 3.7 3.5 - 5.0 g/dL [facility] A/G ratio 0.9 0.7 - 3.8 [facility] Alkaline phosphatase 97 35 - 104 U/L [facility] AST 19 10 - 35 U/L [facility] ALT 14 5 - 50 U/L [facility] Total bilirubin 0.4 0.0 - 1.2 [facility] mg/dL HOSPITAL Specimen Plasma specimen Performing Organization Address City/State/Zipcode Phone Number [facility] DEPARTMENT OF PATHOLOGY AND [address] [place] [phone] [place] [address] Total iron binding capacity (01/24/2019 12:28 PM CDT) Iron level 60 37 - 145 ug/dL [facility] Iron binding capacity 280 200 - 400 ug/dL [facility] % Saturation 21.4 15.0 - 38.0 % [facility] Specimen Plasma specimen Performing Organization Address City/[facility]/Zipcode Phone Number [facility] DEPARTMENT OF PATHOLOGY AND [address] [place] [address] Folate level (01/24/2019 12:28 PM CDT) Folate 11.1 4.8 - 24.2 ng/mL [facility] Specimen Serum Performing Organization Address City/[facility] Phone Number [facility] DEPARTMENT OF PATHOLOGY AND [address] [place] [address] Vitamin B12 level (01/24/2019 12:28 PM CDT) Vitamin B12 230 211 - 946 [facility] Comment: pg/mL HOSPITAL Significant overlap exists between normal and deficiency states. However, most patients with deficiencies will have Serum B12 <200 pg/mL. Specimen Serum Performing Organization Address City/[facility]/Zipcode Phone Number [facility] DEPARTMENT OF PATHOLOGY AND [address] [place] [address] Cv cta tavr w contrast and ffr if needed (01/24/2019 10:37 AM CDT) Specimen Narrative Performed At [facility] Nuclear Cardiology and Cardiac CT [address] [place] [address] CTA TAVR Protocol Pat.Name:LOUIS JOSEPH Pat.ID:[id number] .Date: 01/24/2019 Refer.MD:REHANA MULLINS MD Exam Time: 10:07:00 AM Study Type:CTA TAVR Protocol Height:64inWeight: 144lb BSA: 1.7 c0USAWdi:1945,73Y Sex: FEMALEBP: 178/96 HR:80 bpm Nuclear Tech:RT Brien(R)(CT) Pat. Stat.:Outpatient CPT - 4: TAVR w Coronaries [id number] Nuclear Event ID:[id number] Order ID:[id number] Reason for Study:TAVR workup Procedures:CT Prospective (phases), CT Flash mode SUMMARY: Technique: IV contrast was administered and sequential 0.[address] cuts were obtained through the chest using the Siemens Somatom Force CT scanner. Post-processing and 3D reconstruction were done using the 10sec workstation. Interactive image viewing and volumetric display and analysis were also performed. CTA RESULTS Left Main: A normal sized 5.0 mm artery which arises normally from the left sinus of Valsalva and divides into the left anterior descending and circumflex coronary arteries. Mild calcified atherosclerotic plaque is present but without significant stenosis. Left anterior descending (LAD): A normal sized 4.0mm artery which wraps around the apex and gives off three diagonal branches. Mild calcified and non-calcified atherosclerotic plaque is present in the proximal segment but without significant stenosis. The first diagonal is a 1.5 mm artery which has no significant atherosclerotic plaque present. The second diagonal is a 1.5 mm artery which has no significant atherosclerotic plaque present. The third diagonal is a 1.5 mm artery which has no significant atherosclerotic plaque present. Left circumflex: A normal sized 3.5 mm nondominant artery which arises normally from the left main and gives off three major obtuse marginal arteries before terminating in the AV groove. Moderatecalcified and non-calcified atherosclerotic plaque is present in the proximal segment but without significant stenosis. The first obtuse marginal is a 2.0 mm artery which has moderate calcified and non-calcified atherosclerotic plaque present with mild (25-49%) stenosis. The second obtuse marginal is a <1.5 mm artery which has no significantatherosclerotic plaque present. The third obtuse marginal is a 1.5 mm artery which has no significant atherosclerotic plaque present. Right coronary artery: A normal sized 3.0 mm dominant artery which arises normally from the right sinus of Valsalva and gives off several right ventricular branches, a posterolateral branch and the posterior descending artery. Severe calcified and non-calcified atherosclerotic plaque is present in the proximal segment with total occlusion in the proximal and mid segments. The posterior descending and posterolateral are partially filled via collaterals from left side. Ramus: None Stents: None. Bypass Grafts: None. Pulmonary Arteries: Normal pulmonary artery sizes with no proximal thrombus identified. Left Atrial and Pulmonary Vein Dimensions: Left atrial size (A-P diameter) 41 cm. Normal PV anatomy There is no evidence of the left atrial appendage clot. Left Ventricular Valve Morphology/Function: LV septal wall thickness 10 mm. Aortic valve is tri-leaflet Mitral valve is normal without evidence of stenosis Pericardium: No pericardium effusion or pericardial thickening. Thoracic Aortic Dimensions: No aortic aneurysm or dissection is seen. Aortic root3.1 cm. Left sinus: 31 cm. Right sinus: 31 cm. Non-coronary sinus: 31 cm. Mid ascending thoracic aorta 34 cm. Aortic arch 2.7 cm.There is normal takeoff of the great vessels and no significant stenosis in the proximal visualized segments. Descending thoracic aorta 2.3 cm. Upper abdominal Aorta: 2.1 cm with no significant atherosclerotic plaque. Celiac trunk: normal sized with no significant stenosis. Superior mesenteric artery: normal sized with no significant stenosis. Right renal artery: normal sized with no significant stenosis. Left renal artery: normal sized with no significant stenosis. Inferior mesenteric artery: normal sized with no significant stenosis. Infrarenal aorta: 1.9 cm with no significant atherosclerotic plaque. TAVR Report Calcified Aorta: Mild Characterization of Aortic Root: Major aortic annulus diameter (systole): 25 mm Perpendicular minor aortic annulus diameter (systole): 21 mm Aortic annulus perimeter (systole): 72 mm Sinus of Valsalva height left coronary (diastole): 13 mm Sinus of Valsalva height right coronary (diastole): 13 mm Sinus of Valsalva diameter left coronary (diastole): 31 mm Sinus of Valsalva diameter non-coronary (diastole): 31 mm Sinus of Valsalva diameter right (diastole): 31 mm Maximum ascending aorta diameter at 40mm above annulus (diastole): 34 mm Aortic Root Angulation (diastole): 41 degrees Abdominal Aortic Aneurysm: No Maximum AAA diameter 21 mm Does the AAA have a stent? No Thoracic Aortic Aneurysm: No Maximum TAA diameter: 34 mm Does the TAA have a stent? No Characterization of access vessels: Right Common Iliac: Minimum lumen diameter: 10 mm Percent stenosis: None Tortuosity: Mild Calcification: Mild and non-circumferential Right External Iliac: Minimum lumen diameter: 10 mm Percent stenosis: None Tortuosity: No Calcification: Mild Right Femoral: Minimum lumen diameter: 9 mm Percent stenosis: None Tortuosity: No Calcification: Mild Left Common Iliac:Minimum lumen diameter: 9.5 mm Percent stenosis: None Tortuosity: Mild Calcification: Mild Left External Iliac: Minimum lumen diameter: 9 mm Percent stenosis: None Tortuosity: No Calcification: Mild Left Femoral: Minimum lumen diameter: 9 mm Percent stenosis: None Tortuosity: No Calcification: Mild Aortic Bifurcation Left Lower Extremity Left internal iliac is a 6.5 mm artery which has mild calcified and non-calcified atherosclerotic plaque present with mild (<50%) stenosis. Left superficial femoral is a 7 mm artery which has mild calcified and non-calcified atherosclerotic plaque present but with no significant stenosis. Right Lower Extremity Right internal iliac is a 7 mm artery which has mild calcified and non-calcified atherosclerotic plaque present but with no significant stenosis. Right superficial femoral is a 7 mm artery which has mild calcified and non-calcified atherosclerotic plaque present but with no significant stenosis. Non-Cardiac Findings: Findingssuggestive of small vascular malformation in right lower lobe of the lung is seen.Recommendagitated saline contrast echo to assess for shunting CONCLUSION The coronary artery calcium score indicates a severe extent of coronary atherosclerosis. CT coronary angiography shows significant (>50%) single vessel coronary artery disease with severe proximal LAD coronary artery stenosis. Patent stents are present in the left anterior descending coronary artery. The LVEF is normal. There is no evidence of left atrial appendage thrombus. Vascular measurements as noted above. STUDY QUALITY The study quality is good. COMMENTS None. The above report was based on a dedicated Cardiovascular CTA Protocol and interpreted by a Physical Therapy Nurse.Should a more comprehensive assessment of non-cardiovascular findings be desired, please consult a radiologist.These images are available in the [facility] [employer] PACS system. Signed 01/28/2019 04:11 PM Elizabeth Phillips MD Procedure Note Interface, Radiology Results In - 01/28/2019 4:11 PM CDT Nuclear Cardiology and Cardiac CT [address] [place] [address] CTA TAVR Protocol Pat.Name: LOUIS JOSEPH Pat.ID: [id number] .Date: 01/24/2019 Refer.MD: REHANA MULLINS MD Exam Time: 10:07:00 AM Study Type:CTA TAVR Protocol Height: 64in Weight: 144lb BSA: 1.7 m2 Age: 1 1945,73Y Sex: FEMALE BP: 178/96 HR: 80 bpm Nuclear Tech:RT Brien(R)(CT) Pat. Stat.:Outpatient CPT - 4: TAVR w Coronaries [id number] Nuclear Event ID:[id number] Order ID: [id number] Reason for Study:TAVR workup Procedures:CT Prospective (phases), CT Flash mode SUMMARY: Technique: IV contrast was administered and sequential 0.[address] cuts were obtained through the chest using the Siemens Somatom Force CT scanner. Post-processing and 3D reconstruction were done using the 10sec workstation. Interactive image viewing and volumetric display and analysis were also performed. CTA RESULTS Left Main: A normal sized 5.0 mm artery which arises normally from the left sinus of Valsalva and divides into the left anterior descending and circumflex coronary arteries. Mild calcified atherosclerotic plaque is present but without significant stenosis. Left anterior descending (LAD): A normal sized 4.0mm artery which wraps around the apex and gives off three diagonal branches. Mild calcified and non-calcified atherosclerotic plaque is present in the proximal segment but without significant stenosis. The first diagonal is a 1.5 mm artery which has no significant atherosclerotic plaque present. The second diagonal is a 1.5 mm artery which has no significant atherosclerotic plaque present. The third diagonal is a 1.5 mm artery which has no significant atherosclerotic plaque present. Left circumflex: A normal sized 3.5 mm nondominant artery which arises normally from the left main and gives off three major obtuse marginal arteries before terminating in the AV groove. Moderate calcified and non-calcified atherosclerotic plaque is present in the proximal segment but without significant stenosis. The first obtuse marginal is a 2.0 mm artery which has moderate calcified and non-calcified atherosclerotic plaque present with mild (25-49%) stenosis. The second obtuse marginal is a <1.5 mm artery which has no significant atherosclerotic plaque present. The third obtuse marginal is a 1.5 mm artery which has no significant atherosclerotic plaque present. Right coronary artery: A normal sized 3.0 mm dominant artery which arises normally from the right sinus of Valsalva and gives off several right ventricular branches, a posterolateral branch and the posterior descending artery. Severe calcified and non-calcified atherosclerotic plaque is present in the proximal segment with total occlusion in the proximal and mid segments. The posterior descending and posterolateral are partially filled via collaterals from left side. Ramus: None Stents: None. Bypass Grafts: None. Pulmonary Arteries: Normal pulmonary artery sizes with no proximal thrombus identified. Left Atrial and Pulmonary Vein Dimensions: Left atrial size (A-P diameter) 41 cm. Normal PV anatomy There is no evidence of the left atrial appendage clot. Left Ventricular Valve Morphology/Function: LV septal wall thickness 10 mm. Aortic valve is tri-leaflet Mitral valve is normal without evidence of stenosis Pericardium: No pericardium effusion or pericardial thickening. Thoracic Aortic Dimensions: No aortic aneurysm or dissection is seen. Aortic root 3.1 cm. Left sinus: 31 cm. Right sinus: 31 cm. Non-coronary sinus: 31 cm. Mid ascending thoracic aorta 34 cm. Aortic arch 2.7 cm. There is normal takeoff of the great vessels and no significant stenosis in the proximal visualized segments. Descending thoracic aorta 2.3 cm. Upper abdominal Aorta: 2.1 cm with no significant atherosclerotic plaque. Celiac trunk: normal sized with no significant stenosis. Superior mesenteric artery: normal sized with no significant stenosis. Right renal artery: normal sized with no significant stenosis. Left renal artery: normal sized with no significant stenosis. Inferior mesenteric artery: normal sized with no significant stenosis. Infrarenal aorta: 1.9 cm with no significant atherosclerotic plaque. TAVR Report Calcified Aorta: Mild Characterization of Aortic Root: Major aortic annulus diameter (systole): 25 mm Perpendicular minor aortic annulus diameter (systole): 21 mm Aortic annulus perimeter (systole): 72 mm Sinus of Valsalva height left coronary (diastole): 13 mm Sinus of Valsalva height right coronary (diastole): 13 mm Sinus of Valsalva diameter left coronary (diastole): 31 mm Sinus of Valsalva diameter non-coronary (diastole): 31 mm Sinus of Valsalva diameter right (diastole): 31 mm Maximum ascending aorta diameter at 40mm above annulus (diastole): 34 mm Aortic Root Angulation (diastole): 41 degrees Abdominal Aortic Aneurysm: No Maximum AAA diameter 21 mm Does the AAA have a stent? No Thoracic Aortic Aneurysm: No Maximum TAA diameter: 34 mm Does the TAA have a stent? No Characterization of access vessels: Right Common Iliac: Minimum lumen diameter: 10 mm Percent stenosis: None Tortuosity: Mild Calcification: Mild and non-circumferential Right External Iliac: Minimum lumen diameter: 10 mm Percent stenosis: None Tortuosity: No Calcification: Mild Right Femoral: Minimum lumen diameter: 9 mm Percent stenosis: None Tortuosity: No Calcification: Mild Left Common Iliac: Minimum lumen diameter: 9.5 mm Percent stenosis: None Tortuosity: Mild Calcification: Mild Left External Iliac: Minimum lumen diameter: 9 mm Percent stenosis: None Tortuosity: No Calcification: Mild Left Femoral: Minimum lumen diameter: 9 mm Percent stenosis: None Tortuosity: No Calcification: Mild Aortic Bifurcation Left Lower Extremity Left internal iliac is a 6.5 mm artery which has mild calcified and non-calcified atherosclerotic plaque present with mild (<50%) stenosis. Left superficial femoral is a 7 mm artery which has mild calcified and non-calcified atherosclerotic plaque present but with no significant stenosis. Right Lower Extremity Right internal iliac is a 7 mm artery which has mild calcified and non-calcified atherosclerotic plaque present but with no significant stenosis. Right superficial femoral is a 7 mm artery which has mild calcified and non-calcified atherosclerotic plaque present but with no significant stenosis. 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 Recommend agitated saline contrast echo to assess for shunting CONCLUSION The coronary artery calcium score indicates a severe extent of coronary atherosclerosis. CT coronary angiography shows significant (>50%) single vessel coronary artery disease with severe proximal LAD coronary artery stenosis. Patent stents are present in the left anterior descending coronary artery. The LVEF is normal. There is no evidence of left atrial appendage thrombus. Vascular measurements as noted above. STUDY QUALITY The study quality is good. COMMENTS None. The above report was based on a dedicated Cardiovascular CTA Protocol and interpreted by a Physical Therapy Nurse. Should a more comprehensive assessment of non-cardiovascular findings be desired, please consult a radiologist. These images are available in the [facility] [employer] PACS system. Signed 01/28/2019 04:11 PM Elizabeth Phillips MD Performing Organization Address [facility]/Zipcode Phone Number [facility] [address] [place] [address] POC creatinine (01/24/2019 9:58 AM CDT) POC creatinine 0.4 (L) 0.5 - 0.9 mg/dl [facility] Comment: HOSPITAL Meter ID: [id number] Room Cooler Installer: Cristina Nielson Specimen Blood Performing Organization Address [facility]ode Phone Number [facility] DEPARTMENT OF PATHOLOGY AND [address] [place] [address] GENOMIC MEDICINE [address] [address] [place] carotid duplex (01/24/2019 8:25 AM CDT) Specimen Narrative Performed At [facility] Carotid Duplex Report [address] [place], [place] For quality systems technician purposes, the categorization of the degree of the stenosis of this exam is based on criteria described in the IAC carotid stenosis grading white paper( www.intersocietal.org/Vascular) and in May Reyna., Benny Enriquez., et al. Carotid artery stenosis: diaz-scale and Doppler US diagnosis--Society of Radiologists in Ultrasound Consensus Conference. Radiology. 2003 Nov; 229(2):340-6. Pat.Name:LOUIS JOSEPH.ID:[id number] .Date: 01/24/2019 Refer.MD:REHANA MULLINS MD Exam Time: 7:56:00 AMStudy Type:Carotid DOBAge:1945,73YSex: FEMALE Sonogrphr: Amira Gay RN, RVT CPT - 4: 09701 Echo Event ID:[id number] Order ID:[id number] Reason for Study:Pre Op CV exam for cardiac surgery. Hypertension, hyperlipidemia. Race:C SUMMARY: CAROTID ARTERY SCAN RIGHT:There is smooth intimal lining in the common carotid artery. There is minimal soft plaque in the bulb. The internal and external carotid artery are clear. Colorflow is normal. There is antegrade flow in the vertebral artery. Volume flows in the mid common carotid artery are 388 cc/min. LEFT:There is smooth iniimal lining in the common carotid artery. There is hard and calcifiedplaque in the bulb extending into the origin of the internal and external carotid artery.Colorflow is undisturbed.There is antegrade flow, retrograde flow in the vertebral artery. Volume flows in the mid common carotid artery are 354 cc/min. PRELIMINARY FINDINGS 1.Non-stenotic plaque in the right bulb. 2.<50% stenosis in the left bulb, internal and external carotid artery. PHYSICIAN INTERPRETATION Bilateral carotid duplex examination demonstrated atherosclerotic plaques in the bulbs. Less than 50% stenosis in the bulb and internal carotid artery, bilaterally. Both vertebral arteries are antegrade. Carotid Findings:RightLeft Verteb.Flw AntegradeAntegrade Subclavian Biphasic Biphasic MEASUREMENTS: DOPPLER Left Bulb Bulb PSV59.6 cm/sBulb EDV19.3 cm/s Left CCA Dist CCA Dist PSV54 cm/sCCA Dist EDV18.6 cm/s Left CCA Mid CCA Mid PSV 64.6 cm/sCCA Mid EDV 18 cm/s Left CCA Prox CCA Prox PSV71.4 cm/sCCA Prox EDV13.7 cm/s Left ICA Dist ICA Dist PSV69.6 cm/Johanne Dist EDV22.4 cm/s Left ICA Mid ICA Mid PSV 54.9 cm/Johanne Mid EDV 18.7 cm/s Left ICA Prox ICA Prox PSV57.7 cm/Johanne Prox EDV22.4 cm/s Left ECA Prox ECA Prox PSV82.6 cm/sECA Prox EDV12.4 cm/s Left SCA Prox SCA Prox PSV 126 cm/sSCA Prox EDV 0 cm/s Left Vertebral Vertebral PSV 49.9 cm/sVertebral EDV 13.7 cm/s Right Bulb Bulb PSV64.6 cm/sBulb EDV20.5 cm/s Right CCA Dist CCA Dist PSV59 cm/sCCA Dist EDV16.8 cm/s Right CCA Mid CCA Mid PSV 64.6 cm/sCCA Mid EDV 16.2 cm/s Right CCA Prox CCA Prox PSV72.1 cm/sCCA Prox EDV15.5 cm/s Right ICA Dist ICA Dist PSV84.5 cm/Johanne Dist EDV30.4 cm/s Right ICA Mid ICA Mid PSV 63.4 cm/Johanne Mid EDV 21.1 cm/s Right ICA Prox ICA Prox PSV62.1 cm/Johanne Prox EDV18.6 cm/s Right ECA Prox ECA Prox PSV71.4 cm/sECA Prox EDV9.94 cm/s Right SCA Prox SCA Prox PSV89.4 cm/s Right Vertebral Vertebral PSV 56 cm/sVertebral EDV 17.5 cm/s Right ICA/CCA Ratio ICA/CCA PSV0.961 Left ICA/CCA Ratio ICA/CCA PSV0.893 Signed 01/28/2019 09:07 AM Caro Villa MD Procedure Note Interface, Radiology Results In - 01/28/2019 9:08 AM CDT [facility] Carotid Duplex Report [address] [facility], [place] [address] For quality systems technician purposes, the categorization of the degree of the stenosis of this exam is based on criteria described in the IAC carotid stenosis grading white paper( www.intersocietal.org/Vascular) and in May Reyna., Benny Enriquez., et al. Carotid artery stenosis: diaz-scale and Doppler US diagnosis--Society of Radiologists in Ultrasound Consensus Conference. Radiology. 2003 Jun; 229(2):340-6. Pat.Name: LOUIS JOSEPH.ID: [id number] .Date: 01/24/2019 Refer.MD: REHANA MULLINS MD Exam Time: 7:56:00 AM Study Type:Carotid Age: 1 1945,73Y Sex: FEMALE Sonogrphr: Amira Gay RN, RVT CPT - 4: 79570 Echo Event ID:[id number] Order ID: [id number] Reason for Study:Pre Op CV exam for cardiac surgery. Hypertension, hyperlipidemia. Race: C SUMMARY: CAROTID ARTERY SCAN RIGHT: There is smooth intimal lining in the common carotid artery. There is minimal soft plaque in the bulb. The internal and external carotid artery are clear. Colorflow is normal. There is antegrade flow in the vertebral artery. Volume flows in the mid common carotid artery are 388 cc/min. LEFT: There is smooth iniimal lining in the common carotid artery. There is hard and calcified plaque in the bulb extending into the origin of the internal and external carotid artery. Colorflow is undisturbed. There is antegrade flow, retrograde flow in the vertebral artery. Volume flows in the mid common carotid artery are 354 cc/min. PRELIMINARY FINDINGS 1. Non-stenotic plaque in the right bulb. 2. <50% stenosis in the left bulb, internal and external carotid artery. PHYSICIAN INTERPRETATION Bilateral carotid duplex examination demonstrated atherosclerotic plaques in the bulbs. Less than 50% stenosis in the bulb and internal carotid artery, bilaterally. Both vertebral arteries are antegrade. Carotid Findings: Right Left Verteb.Flw Antegrade Antegrade Subclavian Biphasic Biphasic MEASUREMENTS: DOPPLER Left Bulb Bulb PSV 59.6 cm/s Bulb EDV 19.3 cm/s Left CCA Dist CCA Dist PSV 54 cm/s CCA Dist EDV 18.6 cm/s Left CCA Mid CCA Mid PSV 64.6 cm/s CCA Mid EDV 18 cm/s Left CCA Prox CCA Prox PSV 71.4 cm/s CCA Prox EDV 13.7 cm/s Left ICA Dist ICA Dist PSV 69.6 cm/s ICA Dist EDV 22.4 cm/s Left ICA Mid ICA Mid PSV 54.9 cm/s ICA Mid EDV 18.7 cm/s Left ICA Prox ICA Prox PSV 57.7 cm/s ICA Prox EDV 22.4 cm/s Left ECA Prox ECA Prox PSV 82.6 cm/s ECA Prox EDV 12.4 cm/s Left SCA Prox SCA Prox PSV 126 cm/s SCA Prox EDV 0 cm/s Left Vertebral Vertebral PSV 49.9 cm/s Vertebral EDV 13.7 cm/s Right Bulb Bulb PSV 64.6 cm/s Bulb EDV 20.5 cm/s Right CCA Dist CCA Dist PSV 59 cm/s CCA Dist EDV 16.8 cm/s Right CCA Mid CCA Mid PSV 64.6 cm/s CCA Mid EDV 16.2 cm/s Right CCA Prox CCA Prox PSV 72.1 cm/s CCA Prox EDV 15.5 cm/s Right ICA Dist ICA Dist PSV 84.5 cm/s ICA Dist EDV 30.4 cm/s Right ICA Mid ICA Mid PSV 63.4 cm/s ICA Mid EDV 21.1 cm/s Right ICA Prox ICA Prox PSV 62.1 cm/s ICA Prox EDV 18.6 cm/s Right ECA Prox ECA Prox PSV 71.4 cm/s ECA Prox EDV 9.94 cm/s Right SCA Prox SCA Prox PSV 89.4 cm/s Right Vertebral Vertebral PSV 56 cm/s Vertebral EDV 17.5 cm/s Right ICA/CCA Ratio ICA/CCA PSV 0.961 Left ICA/CCA Ratio ICA/CCA PSV 0.893 Signed 01/28/2019 09:07 JOHNY Villa MD Performing Organization Address City/State/Zipcode Phone Number [facility] [address] [place] [address] Echocardiogram complete w contrast and 3D if needed (01/03/2019 11:45 AM CDT) Specimen Narrative [facility] At [facility] E[facility] Report [address] [place], [facility] [address], [place] [address] Pat.Name:LOUIS JOSEPH Pat.ID:[id number] .Date: 01/03/2019 Refer.MD:REHANA MULLINS MD Exam Time: 11:07:00 AM Study Type:Routine Echo Height:64inWeight: 140lb BSA: 1.68 m2 DOBAge:1945,73Y Sex: FEMALEBP: 134/61 HR:72 bpmSonogrphr: Marina Malone RDCS, RVT Pat. Stat.:OutpatientRoom:[facility] Study Status:Final Echo Event ID:[id number] Order ID:[id number] Reason for Study:Aortic stenosis, equivocal, symptomatic History / Clinical:Hyperlipidemia, Hypertension Procedures:2D Echo, Colorflow Doppler, Strain SUMMARY: LV EF is normal. Estimated EF is 65-69%. Severe aortic valve stenosis. Estimated mean aortic valve gradient 57 mmHg with a valve area of 0.7 cm2. DVI measures 0.26. FINDINGS: LV: LV size is normal. There is mild concentric LV hypertrophy. LVEF is normal. Overall wall motion is normal. Estimated EFis 65-69%. Average global longitudinal strain is normal (-17%). RV: RV size is mildly enlarged. RV systolic function is normal. LA: LA volume is mild to moderately enlarged. RA: RA size is normal. AO: Aortic root diameter is normal. DARYA: No pericardial effusion. SVn:Normal collapse of IVC during inspiration is consistent with normalRA pressure. AV: Severe thickening and calcification of AV leaflets. Severe aorticvalve stenosis. Estimated mean aortic valve gradient 57mmHg with a valve area of 0.7 cm2. DVI measures 0.26. MV: Mild thickening and calcification of mitral leaflets. PV: No structural PV abnormalities noted. TV: No structural TV abnormalities noted. A trace of tricuspid regurgitation Barr: LV relaxation is impaired. LV filling pressure is normal. Other:Insufficient TR jet to estimate PA systolic pressure. MEASUREMENTS: 2D Parasternal [place] LVOT 1.8 cmLA Ds 3.5 cm LVIDd4.1 cmIndex 2.5 cm/m Ao An2.5 cm LVIDs2.1 cmAo Rtd 3 cm Index1.8 cm/m LV%fs 48.8 % LV Mass 182.5 g(87-129) IVSd 1.5 cmLVM Index 108.6 g/m2 LVPWd1 cmRWT 0.5 LA Sng Plane LA Area 19.5 cm2(8.8-23.4) LA Vol62.3 ml Index37.1 ml/m LA LngAx 5.2 cm RA Sng Plane RA Area 13.5 cm2(8.3-19.5) RA Vol36.8 ml Index21.9 ml/m RA LngAx 4.5 cm DOPPLER AV For Flow/LISSA AV pkVel 474.1 cm/s (100-170) AV AC/ET 0 AV mnVel 355.2 cm/Fabián TVI 110.6 cm AV pkPG 89.9 mmHgAVpkAcRt 683887.6 cm/s2 AV Mean G 57.3 mmHgAV DeRt 1522.4 cm/s2 AV AC3 msec (83-118) AV Area 0.7 cm2(3-5) AV ET311 msec LVOT For Flow LVOT Area2.5 cm2 LVOT SV 75 ml IJTIunGrt936.6 cm/sHR 73.4 bpm LVOTpkPG 5.1 mmHgLVOT CO 5.5 l/min LVOTmnPG 2.8 mmHgLVOT CI 3.3 l/m/m2 LVOT TVI29.5 cm Signed 01/04/2019 09:43 AM Sriram Brewer M.D. Procedure Note Interface, Radiology Results In - 01/04/2019 9:43 AM CDT Echocardiography Report [address] [place] [address] Pat.Name: LOUIS JOSEPH Pat.ID: [id number] St.Date: 01/03/2019 Refer.MD: REHANA MULLINS MD Exam Time: 11:07:00 AM Study Type:Routine Echo Height: 64in Weight: 140lb BSA: 1.68 m2 Age: 1 1945,73Y Sex: FEMALE BP: 134/61 HR: 72 bpm Sonogrphr: Marina Malone RDCS, T Pat. Stat.:Outpatient Room: [facility] Study Status:Final Echo Event ID:[id number] Order ID: [id number] Reason for Study:Aortic stenosis, equivocal, symptomatic History / Clinical:Hyperlipidemia, Hypertension Procedures:2D Echo, Colorflow Doppler, Strain SUMMARY: LV EF is normal. Estimated EF is 65-69%. Severe aortic valve stenosis. Estimated mean aortic valve gradient 57 mmHg with a valve area of 0.7 cm2. DVI measures 0.26. FINDINGS: LV: LV size is normal. There is mild concentric LV hypertrophy. LV EF is normal. Overall wall motion is normal. Estimated EF is 65-69%. Average global longitudinal strain is normal (-17%). RV: RV size is mildly enlarged. RV systolic function is normal. LA: LA volume is mild to moderately enlarged. RA: RA size is normal. AO: Aortic root diameter is normal. DARYA: No pericardial effusion. SVn: Normal collapse of IVC during inspiration is consistent with normal RA pressure. AV: Severe thickening and calcification of AV leaflets. Severe aortic valve stenosis. Estimated mean aortic valve gradient 57 mmHg with a valve area of 0.7 cm2. DVI measures 0.26. MV: Mild thickening and calcification of mitral leaflets. PV: No structural PV abnormalities noted. TV: No structural TV abnormalities noted. A trace of tricuspid regurgitation Barr: LV relaxation is impaired. LV filling pressure is normal. Other: Insufficient TR jet to estimate PA systolic pressure. MEASUREMENTS: 2D Parasternal Long [place] LVOT 1.8 cm LA Ds 3.5 cm LVIDd 4.1 cm Index 2.5 cm/m Ao An 2.5 cm LVIDs 2.1 cm Ao Rtd 3 cm Index 1.8 cm/m LV%fs 48.8 % LV Mass 182.5 g (87-129) IVSd 1.5 cm LVM Index 108.6 g/m2 LVPWd 1 cm RWT 0.5 LA Sng Plane LA Area 19.5 cm2 (8.8-23.4) LA Vol 62.3 ml Index 37.1 ml/m LA LngAx 5.2 cm RA Sng Plane RA Area 13.5 cm2 (8.3-19.5) RA Vol 36.8 ml Index 21.9 ml/m RA LngAx 4.5 cm DOPPLER AV For Flow/LISSA AV pkVel 474.1 cm/s (100-170) AV AC/ET 0 AV mnVel 355.2 cm/s AV TVI 110.6 cm AV pkPG 89.9 mmHg AVpkAcRt 704720.6 cm/s2 AV Mean G 57.3 mmHg AV DeRt 1522.4 cm/s2 AV AC 3 msec (83-118) AV Area 0.7 cm2 (3-5) AV ET 311 msec LVOT For Flow LVOT Area 2.5 cm2 LVOT SV 75 ml LVOTpkVel 112.6 cm/s HR 73.4 bpm LVOTpkPG 5.1 mmHg LVOT CO 5.5 l/min LVOTmnPG 2.8 mmHg LVOT CI 3.3 l/m/m2 LVOT TVI 29.5 cm Signed 01/04/2019 09:43 AM Sriram Brewer M.D. Performing Organization Address City/State/Zipcode Phone Number [facility] [address] [place] [address] Spirometry, diffusion (01/03/2019 8:17 AM CDT) [facility] Signature FEV1 Pre 1.99 L [facility] FEV1/FVC % Pre 70.21 % [facility] FVC Pre 2.84 L [facility] PEF Pre 5.14 L/s [facility] FEF 25-75% Pre 1.29 L/s [facility] DLCO Pre 20.32 ml/(min*mmHg) [facility] DL/VA Pre 4.37 ml/(min*mmHg*L) [facility] VA SB Pre 4.65 L [facility] DLCOc Pre 20.32 ml/(min*mmHg) [facility] KCOc SB Pre 4.37 ml/(min*mmHg*L) [facility] Hb Pre 13.40 g(Hb)/dL [facility] FEV1 Predicted 2.14 [facility] FEV1 LLN 1.56 [facility] FEV1 % Pre of Predicted 93.0 % [facility] FVC Predicted 2.85 [facility] FVC LLN 2.16 [facility] FVC % Pre of Predicted 99.5 % [facility] FEV1/FVC % Predicted 75 [facility] FEV1/FVC % LLN 65 [facility] FEV1/FVC % Pre of Predicted 93.5 % [facility] FEF 25-75% Predicted 1.71 [facility] FEF 25-75% LLN 0.47 [facility] FEF 25-75% % Pre of 75.8 % [facility] Predicted PEF Predicted 5.33 [facility] PEF LLN 3.62 [facility] PEF % Pre of Predicted 96.5 % [facility] DLCO Predicted 20.06 [facility] DLCO LLN 13.56 [facility] DLCO % Pre of Predicted 101.3 % [facility] DLCOc Predicted 20.06 [facility] DLCOc LLN 13.56 [facility] DLCOc % Pre of Predicted 101.3 % [facility] DL/VA Predicted 4.23 [facility] DL/VA LLN 2.91 [facility] DL/VA % Pre of Predicted 103.5 % [facility] KCOc SB Predicted 4.23 [facility] KCOc SB LLN 2.91 [facility] KCOc SB % Pre of Predicted 103.5 % [facility] VA SB Predicted 5.06 [facility] VA SB LLN 3.96 [facility] VA SB % Pre of Predicted 91.8 % [facility] Specimen Narrative Performed At Performing Organization Address City/State/[facility] Phone Number [facility] [address] [place] [address] after 03/24/2018 Insurance Payer Benefit Plan / Subscriber ID Effective Dates Phone Address Type Group [employer]NA MEDICARE HU[employer]NA MEDICARE xxxxxxxxx 2018-Present PPO PPO/PFFS/ERS [facility] Advance Directives Patient has advance care planning documents on file. For more information, please contact:Demarcus Johnson[address] [place] [address]
--- OUTSIDE RECORDS SUMMARY | 2019-03-25 11:41 | XMS REPORT | Summary of Care ---
:1945 Author Organization [facility] Out[facility] [place] Address [address] [place] [id number]- Encounter HQ Encntr_alias(FIN) [id number] Date(s): 02/26/19 - 02/26/19 [facility] Outpatient Imaging [address] [address]- [phone] Discharge Disposition: Home or Self Care Attending Physician: Home Recinos MD Referring Physician: Home Recinos MD Vital Signs No data available for this section Problem List No data available for this section Allergies, Adverse Reactions, Alerts No data available for this section Medications No data available for this section Results No data available for this section Immunizations No data available for this section Procedures No data available for this section Social History No data available for this section Assessment and Plan No data available for this section
--- OUTSIDE RECORDS SUMMARY | 2019-03-25 11:41 | XMS REPORT | Summary of Care ---
:1945 Author Organization [facility] Outpatient Imaging [place] Address [address] [place] [id number]- Encounter HQ Encntr_alias(FIN) [id number] Date(s): 03/06/19 - 03/06/19 [facility] Outpatient Imaging [place] [address] [place] [address]- [phone] Discharge Disposition: Home or Self Care Attending [...]
--- OUTSIDE RECORDS SUMMARY | 2019-03-25 11:41 | XMS REPORT | Continuity of Care Document ---
:1945 Author Organization [facility] Information [facility] Care Team Providers Name Role Phone [employer] Unavailable Unavailable Problems Problem Status Onset Classification Date Comments Source Date Reported R06.02 - Active [facility] SHORTNESS OF 9 [place] BREATH Medications No Data Provided for This Section Allergies, Adverse Reactions, Alerts No Known Medication Allergies Immunizations No Data Provided for This Section Results No Data Provided for This Section Pathology Reports No Data Provided for This Section Diagnostic Reports Report Value Date Source Chest 2 views DX EXAM: XR CHEST 2 VIEWS 03/06/2019 [facility] DATE: 03/06/2019 12:31 CDT INDICATION: - R06.02 Shortness of breath COMPARISON: 02/26/2019 TECHNIQUE: PA and lateral chest radiographs FINDINGS: Again seen unchanged moderate right pleural effusion with right lung basilar atelectatic changes. 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 The lungs are otherwise cl ear. The heart size is normal. No acute bony abnormality is identified. IMPRESSION: No interval change with moderate right-sided pleural effusion and right lung basilar atelectasis. Chest 2 views DX EXAM: XR CHEST 2 VIEWS 02/26/2019 [facility] [place] DATE: 02/26/2019 12:45 CDT INDICATION: - R06.02 Shortness of breath ADDITIONAL INFORMATION: None. COMPARISON: None. TECHNIQUE: PA and lateral chest radiographs. Number of images: 2 FINDINGS: Lines and tubes and hardware: Sternal plate and screws. Aortic prosthetic valve. Mediastinal clips. Lungs/Pleura: Moderate right pleural effusion with lower lung opacification that obscures the right hemidiaphragm. The remainder of the lungs are clear. There is a minimal left pleural effusion. Pneumothorax: None Vascularity: Normal pulmonary vascularity. Heart size: Normal. The mediastinal contours are normal. Aortic arch is calcified. Bones: No acute bony abnormality is identified. Cervical spine degenerative changes seen. Soft Tissues: Unremarkable. IMPRESSION: 1. Moderate right pleural effusion with lower lung opacification that may represent atelectasis and/or consolidation. 2. Line(s), tube(s) and hardware as above. 3. Dr. Recinos was notified of the findings on 02/26/2019 at 1324 hours by telephone by Dr. Anthony. Consultation Notes No Data Provided for This Section Discharge Summaries No Data Provided for This Section History and Physicals No Data Provided for This Section Vital Signs No Data Provided for This Section Encounters Location Location Encounter Encounter Reason Attending ADM DC Status Source Details Type Number For Provider Date Date Visit [facility] Outpt Diag [id number] Home Recinos 02/26 02/27 [facility] Outpt Diag [id number] Home Recinos 03/06 03/07 [facility] Procedures No Data Provided for This Section Assessment and Plan No Data Provided for This Section Plan of Care No Data Provided for This Section Social History Social History Date Source No data available for this 03/07/2019 [facility] [place] section Family History No Data Provided for This Section Advance Directives No Data Provided for This Section Functional Status No Data Provided for This Section
[2019-03-25] MEDS ORDERED: NA CHLORIDE 0.9% 1,000 ML ONE (12:09)
[2019-03-25 12:36] LABS: Absolute Lymphocytes (CBC) 1.7 K/uL (0.7-4.9); Basophils % 0.7 % (0-1.3); Hematocrit 38.5 % (36.0-45.0); Lymphocytes % 22.4 % (15.3-44.8); RBC Red Blood Cell Count 4.28 M/uL (3.86-4.86)
--- NOTE | 2019-03-25 12:44 | RAD REPORT ---
EXAM DESCRIPTION: RAD - Chest Single View - 03/25/2019 12:30 pm CLINICAL HISTORY: COUGH Chest pain. COMPARISON: Chest Single View dated 12/22/2018; Chest Single View dated 06/08/2017; Chest Single View dated 11/23/2016; CHEST SINGLE VIEW dated 05/19/2011 FINDINGS: Portable technique limits examination quality. Emphysematous changes are present. Mild airspace opacity is noted in the right lung base suspicious f or developing pneumonia. The heart is normal in size. Postsurgical changes are noted. IMPRESSION: Mild right basilar lung infiltrate suspected, suspicious for pneumonia.
[2019-03-25 12:54] LABS: ALT/SGPT 15 U/L (12-78); AST/SGOT 15 U/L (15-37); Albumin 3.6 g/dL (3.4-5.0); Alkaline Phosphatase 82 U/L (45-117); BUN Blood Urea Nitrogen 13 mg/dL (7-18); Bicarbonate 25 mmol/L (21-32); Bilirubin Direct 0.1 mg/dL (0-0.2); Bilirubin Total 0.4 mg/dL (0.2-1.0); Glucose Level 105 mg/dL (74-106); Magnesium 2.4 mg/dL (1.8-2.4); NT PRO-BNP 179 pg/mL (<125); Potassium 3.7 mmol/L (3.5-5.1); Protein, Total 7.9 g/dL (6.4-8.2); Sodium Level 140 mmol/L (136-145); Troponin (Emerg Dept Use Only) < 0.02 ng/mL (0.0-0.045)
[2019-03-25] MEDS ORDERED: Levofloxacin500mg IV 500 MG/100 ML BAG IV ONE (13:52)
[2019-03-25 14:53] LABS: Urine Blood NEGATIVE (NEG); Urine Glucose NEGATIVE (NEG); Urine Protein NEGATIVE (NEG); Urine Specific Gravity <1.005 (1.005-1.030); Urine pH 5.5 (5.0-7.0)
--- NOTE | 2019-03-25 15:57 | ER ---
Nurse's Notes [facility] Name: Ivanna Joseph Age: 73 yrs Sex: Female : 1945 Arrival Date: 03/25/2019 Time: 11:36 Bed 6 Private MD: Diagnosis: Nausea;Syncope and collapse-near;Pneumonia due to other specified bacteria Presentation: 03/25 11:40 Presenting complaint: states: she feels really weak and about to pass out, S/P heart surgery 02/07/19, this has been going on for days now; denies chest pain, reports nausea and dizziness;. Transition of care: patient was not received from another setting of care. Onset of symptoms was March 25, 2019. Risk Assessment: Do you want to hurt yourself or someone else? Patient reports no desire to harm self or others. Initial Sepsis Screen: Does the patient meet any 2 criteria? No. Patient's initial sepsis screen is negative. Does the patient have a suspected source of infection? No. Patient's initial sepsis screen is negative. Care prior to arrival: 11:40 Method Of Arrival: Ambulatory 11:40 Acuity: QUE 3 Historical: - Allergies: 11:43 Codeine; hj - PMHx: 11:43 Aortic Stenosis; Arthritis; Hyperlipidemia; Hypertension; hj - PSHx: 11:43 ; hj - Family history:: not pertinent. Assessment: 12:09 Reassessment: xray at bedside at this time. sg 14:44 Reassessment: Patient appears in no apparent distress at this time. Patient and/or sg family updated on plan of care and expected duration. Pain level reassessed. Patient is alert, oriented x 3, equal unlabored respirations, skin warm/dry/pink. 15:52 Reassessment: Patient appears in no apparent distress at this time. Patient and/or tw2 family updated on plan of care and expected duration. Pain level reassessed. Patient is alert, oriented x 3, equal unlabored respirations, skin warm/dry/pink. Vital Signs: 11:43 BP 154 / 73; Pulse 73; Resp 18; Temp 97.8(TE); Pulse Ox 97% on R/A; Weight 63.5 kg; hj Height 5 ft. 3 in. (160.02 cm); Pain 0/10; 14:43 BP 153 / 74; Pulse 68; Resp 20; Pulse Ox 98% on R/A; Pain 0/10; em1 15:49 BP 149 / 66; Pulse 61; Resp 17; Pulse Ox 98% on R/A; tw2 11:43 Body Mass Index 24.80 (63.50 kg, 160.02 cm) ED Course: 11:36 Patient arrived in ED. rg4 11:42 Triage completed. hj 11:43 Arm band placed on left wrist. 11:48 Alberto Stock MD is Attending Physician. [facility] 12:04 Viraj Rivas RN is Primary Nurse. sg 12:21 Initial lab(s) drawn, by ne, sent to lab. Inserted saline lock: 22 gauge in right sg antecubital area, using aseptic technique. Blood collected. 12:29 X-ray completed. Portable x-ray completed in exam room. Patient tolerated procedure mh1 well. 12:34 XRAY Chest (1 view) In Process Unspecified. EDMS 14:30 US Carotid Artery Bilateral In Process Unspecified. EDMS 16:40 Patient has correct armband on for positive identification. Bed in low position. Call sg light in reach. Side rails up X2. Pulse ox on. NIBP on. Warm blanket given. Head of bed elevated. 16:40 No provider procedures requiring assistance completed. IV discontinued, intact, sg bleeding controlled, No redness/swelling at site. Pressure dressing applied. Administered Medications: 12:20 Drug: NS 0.9% 1000 ml Route: IV; Rate: 125 ml/hr; Site: right antecubital; sg 14:44 Drug: levofloxacin 500 mg Volume: 100 ml; Route: IVPB; Infused Over: 60 mins; Site: sg right antecubital; 15:49 Follow up: Response: No adverse reaction; IV Status: Completed infusion tw2 Outcome: 15:56 Discharge ordered by . ralph 16:40 Discharged to home ambulatory, with family. 16:40 Condition: good 16:40 Discharge instructions given to patient, family, Instructed on discharge instructions, follow up and referral plans. medication usage, safety practices, Demonstrated understanding of instructions, follow-up care, medications, Prescriptions given X 2. 16:41 Patient left the ED. sg Signatures: Dispatcher [employer] EDMS Viraj Rivas RN Alberto Lozada MD MD cha Harvey, Martha 1 Yazan Glover 1 Rayshawn Patel RN RN hj Jo Hooks RN RN tw2 Shila Breen 4 Corrections: (The following items were deleted from the chart) 11:49 11:43 Pulse 73bpm; Resp 18bpm; Pulse Ox 97% RA; Temp 97.8F Temporal; 63.5 kg; Height 5 hj ft. 3 in.; BMI: 24.8; Pain 0/10; hj
--- NOTE | 2019-03-25 15:58 | EDPHYS ---
Physician Documentation [facility] Name: Ivanna Joseph Age: 73 yrs Sex: Female : 1945 Arrival Date: 03/25/2019 Time: 11:36 Bed 6 Private MD: ED Physician Alberto Stock HPI: 03/25 12:04 This 73 yrs old Female presents to ER via Ambulatory with complaints of ralph Weakness, Dizziness, Nausea. 12:04 The patient presents to the emergency department with weakness of the. ralph 12:04 The patient or guardian reports chest pain that is located primarily in the substernal ralph area. Onset: 2 day(s) ago. The patient has experienced near-syncope, almost passed out. Onset: The symptoms/episode began/occurred 3 day(s) ago. Duration: The patient has had multiple episodes, that last an unknown period of time. The pain does not radiate. Associated signs and symptoms: The patient has no apparent associated signs or symptoms. Historical: - Allergies: 11:43 Codeine; hj - PMHx: 11:43 Aortic Stenosis; Arthritis; Hyperlipidemia; Hypertension; hj - PSHx: 11:43 ; hj - Family history:: not pertinent. ROS: 12:05 Constitutional: Negative for fever, chills, and weight loss, Eyes: Negative for injury, ralph pain, redness, and discharge, ENT: Negative for injury, pain, and discharge, Neck: Negative for injury, pain, and swelling, Respiratory: Negative for shortness of breath, cough, wheezing, and pleuritic chest pain, Abdomen/GI: Negative for abdominal pain, nausea, vomiting, diarrhea, and constipation, Back: Negative for injury and pain, : Negative for injury, bleeding, discharge, and swelling, MS/Extremity: Negative for injury and deformity, Skin: Negative for injury, rash, and discoloration, Psych: Negative for depression, anxiety, suicide ideation, homicidal ideation, and hallucinations, Allergy/Immunology: Negative for hives, rash, and allergies, Endocrine: Negative for neck swelling, polydipsia, polyuria, polyphagia, and marked weight changes, Hematologic/Lymphatic: Negative for swollen nodes, abnormal bleeding, and unusual bruising. 12:05 Cardiovascular: Positive for chest pain, palpitations. 12:05 Neuro: Positive for near syncope, weakness. Exam: 12:05 Constitutional: This is a well developed, well nourished patient who is awake, alert, ralph and in no acute distress. Head/Face: Normocephalic, atraumatic. Eyes: Pupils equal round and reactive to light, extra-ocular motions intact. Lids and lashes normal. Conjunctiva and sclera are non-icteric and not injected. Cornea within normal limits. Periorbital areas with no swelling, redness, or edema. ENT: Nares patent. No nasal discharge, no septal abnormalities noted. Tympanic membranes are normal and external auditory canals are clear. Oropharynx with no redness, swelling, or masses, exudates, or evidence of obstruction, uvula midline. Mucous membranes moist. Neck: Trachea midline, no thyromegaly or masses palpated, and no cervical lymphadenopathy. Supple, full range of motion without nuchal rigidity, or vertebral point tenderness. No Meningismus. Chest/axilla: Normal chest wall appearance and motion. Nontender with no deformity. No lesions are appreciated. Cardiovascular: Regular rate and rhythm with a normal S1 and S2. No gallops, murmurs, or rubs. Normal PMI, no JVD. No pulse deficits. Respiratory: Lungs have equal breath sounds bilaterally, clear to auscultation and percussion. No rales, rhonchi or wheezes noted. No increased work of breathing, no retractions or nasal flaring. Abdomen/GI: Soft, non-tender, with normal bowel sounds. No distension or tympany. No guarding or rebound. No evidence of tenderness throughout. Back: No spinal tenderness. No costovertebral tenderness. Full range of motion. Female : Normal external genitalia. Skin: Warm, dry with normal turgor. Normal color with no rashes, no lesions, and no evidence of cellulitis. MS/ Extremity: Pulses equal, no cyanosis. Neurovascular intact. Full, normal range of motion. Neuro: Awake and alert, GCS 15, oriented to person, place, time, and situation. Cranial nerves II-XII grossly intact. Motor strength 5/5 in all extremities. Sensory grossly intact. Cerebellar exam normal. Normal gait. Psych: Awake, alert, with orientation to person, place and time. Behavior, mood, and affect are within normal limits. Vital Signs: 11:43 BP 154 / 73; Pulse 73; Resp 18; Temp 97.8(TE); Pulse Ox 97% on R/A; Weight 63.5 kg; hj Height 5 ft. 3 in. (160.02 cm); Pain 0/10; 14:43 BP 153 / 74; Pulse 68; Resp 20; Pulse Ox 98% on R/A; Pain 0/10; em1 15:49 BP 149 / 66; Pulse 61; Resp 17; Pulse Ox 98% on R/A; tw2 11:43 Body Mass Index 24.80 (63.50 kg, 160.02 cm) hj MDM: 11:48 Patient medically screened. [facility] 12:06 Data reviewed: vital signs, nurses notes, lab test result(s), EKG, radiologic studies, ralph doppler, plain films. 03/25 12:04 Order name: Basic Metabolic Panel; Complete Time: 13:42 [facility] 03/25 12:04 Order name: CBC with Diff; Complete Time: 13:42 [facility] 03/25 12:04 Order name: LFT's; Complete Time: 13:42 [facility] 03/25 12:04 Order name: Magnesium; Complete Time: 13:42 [facility] 03/25 12:04 Order name: NT PRO-BNP; Complete Time: 13:42 [facility] 03/25 12:04 Order name: PT-INR; Complete Time: 12:41 [facility] 03/25 12:04 Order name: Troponin (emerg Dept Use Only); Complete Time: 13:42 [facility] 03/25 12:04 Order name: XRAY Chest (1 view); Complete Time: 13:42 [facility] 03/25 12:04 Order name: Echo w/ Doppler [facility] 03/25 13:43 Order name: Blood Culture Adult (2) [facility] 03/25 13:57 Order name: US Carotid Artery Bilateral [facility] 03/25 14:49 Order name: Urine Dipstick--Ancillary (enter results) 03/25 11:48 Order name: EKG; Complete Time: 11:51 03/25 12:04 Order name: Cardiac monitoring; Complete Time: 14:44 [facility] 03/25 12:04 Order name: IV Saline Lock; Complete Time: 12:22 [facility] 03/25 12:04 Order name: Labs collected and sent; Complete Time: 12:22 [facility] 03/25 12:04 Order name: O2 Per Protocol; Complete Time: 12:22 [facility] 03/25 12:04 Order name: O2 Sat Monitoring; Complete Time: 12:22 [facility] 03/25 12:04 Order name: Urine Dipstick-Ancillary (obtain specimen); Complete Time: 16:20 [facility] Administered Medications: 12:20 Drug: NS 0.9% 1000 ml Route: IV; Rate: 125 ml/hr; Site: right antecubital; sg 14:44 Drug: levofloxacin 500 mg Volume: 100 ml; Route: IVPB; Infused Over: 60 mins; Site: sg right antecubital; 15:49 Follow up: Response: No adverse reaction; IV Status: Completed infusion tw2 Disposition: 03/25/19 15:56 Discharged to Home. Impression: Nausea, Syncope and collapse - near, Pneumonia due to other specified bacteria. - Condition is Fair. - Discharge Instructions: Nausea, Adult, Near-Syncope, Weakness, Near-Syncope, Lxns-[id number], Weakness, Kzlt-mi-Sgzg. - Prescriptions for Levaquin 500 mg Oral Tablet - take 1 tablet by ORAL route once daily for 10 days; 9 tablet. Zofran 4 mg Oral Tablet - take 1 tablet by ORAL route every 12 hours As needed; 20 tablet. - Medication Reconciliation Form, Thank You Letter, Antibiotic Education, Prescription Opioid Use form. - Follow up: Private Physician; When: Tomorrow; Reason: Recheck today's complaints, Continuance of care, Re-evaluation by your physician. - Problem is new. - Symptoms have improved. Signatures: Dispatcher [employer] EDMS Viraj Rivas RN RN sg Anderson, Corey, MD MD cha Joaquin, Henry, RN RN Jo Hooks RN tw2 Corrections: (The following items were deleted from the chart) 16:41 15:56 03/25/2019 15:56 Discharged to Home. Impression: Nausea; Syncope and collapse - sg near; Pneumonia due to other specified bacteria. Condition is Fair. Discharge Instructions: Nausea, Adult, Near-Syncope, Weakness, Near-Syncope, Iada-li-Xqsl, Weakness, Eaas-az-Ipoh. Prescriptions for Levaquin 500 mg Oral Tablet - take 1 tablet by ORAL route once daily for 10 days; 9 tablet, Zofran 4 mg Oral Tablet - take 1 tablet by ORAL route every 12 hours As needed; 20 tablet. and Forms are Medication Reconciliation Form, Thank You Letter, Antibiotic Education, Prescription Opioid Use. Follow up: Private Physician; When: Tomorrow; Reason: Recheck today's complaints, Continuance of care, Re-evaluation by your physician. Problem is new. Symptoms have improved. ralph
--- NOTE | 2019-03-25 17:23 | RAD REPORT ---
EXAM DESCRIPTION: - CP - 03/25/2019 5:14 pm CLINICAL HISTORY: Dizziness, syncope COMPARISON: None. TECHNIQUE: Real-time sonographic evaluation of both carotid systems was performed. Saini scale and Do ppler interrogation were performed with waveform tracing bilaterally. FINDINGS: Normal high resistance waveforms are noted in both external carotid arteries. The common c arotid arteries and internal carotid arteries show normal low resistance waveforms. Calcified plaquing changes are present in the left carotid bulb without significant luminal narrowing . Peak systolic and end diastolic velocity values and the ICA/CCA ratios are in the non-hemodynamical ly significant range. Antegrade flow seen in both vertebral arteries. Velocity values and ratios were recorded and are retained in the patient's imaging records. IMPRESSION: Calcified plaquing changes in the left carotid bulb. No evidence of a hemodynamically significant stenosis.
[2019-03-25 21:16] VITALS: TEMP 97.8
[2019-03-25 21:17] VITALS: O2SAT 98
[2019-03-25 21:18] VITALS: BP 149/66
--- NOTE | 2019-03-26 07:39 | ECHO ---
HEIGHT: 5 ft 3 in WEIGHT: 140 lb 0 oz DATE OF STUDY: 03/25/[address]: Alberto Stock MD 2-DIMENSIONAL: YES M.MODE: YES DOPPLER: YES COLOR FLOW: YES TDS: NO PORTABLE: YES DEFINITY: NO BUBBLE STUDY: NO DIAGNOSIS: CHEST PAIN/ RECENT VALVE REPLACEMENT CARDIAC HISTORY: CATHERIZATION: NO SURGERY: YES PROSTHETIC VALVE: YES PACEMAKER: NO MEASUREMENTS (cm) DIASTOLIC (NORMALS) SYSTOLIC (NORMALS) IVSd 1.0 (0.6-1.2) LA Diam 3.7 (1.9-4.0) LVEF 69% LVIDd 3.5 (3.5-5.7) LVIDs 2.1 (2.0-3.5) %FS 38% LVPWd 1.2 (0.6-1.2) Ao Diam 2.2 (2.0-3.7) 2 DIMENSIONAL ASSESSMENT: RIGHT ATRIUM: NORMAL LEFT ATRIUM: NORMAL RIGHT VENTRICLE: NORMAL LEFT VENTRICLE: NORMAL TRICUSPID VALVE: NORMAL MITRAL VALVE: NORMAL PULMONIC VALVE: NORMAL AORTIC VALVE: BIOPROSTHETIC PERICARDIAL EFFUSION: NONE AORTIC ROOT: NORMAL LEFT VENTRICULAR WALL MOTION: NORMAL. DOPPLER/COLOR FLOW: NORMAL AORTIC PROSTHETIC VALVE DOPPLER. NO AORTIC STENOSIS OR AORTIC REGURGITATION. COMMENTS: NORMAL LEFT VENTRICULAR EJECTION FRACTION. BIOPROSTHETIC AORTIC VALVE WITH NORMAL APPEARANCE AND DOPPLER. TECHNOLOGIST: PRETTY GAGNON
--- NOTE | 2019-03-26 07:50 | EKG ---
Test Date: 2019-03-25 Test Time: 11:49:08 Harness Brusher: EDDIE MEASUREMENT RESULTS: Intervals: Rate: 72 WV: 176 QRSD: 88 QT: 420 QTc: 459 Conger: P: 73 WV: 176 QRS: -1 T: 77 INTERPRETIVE STATEMENTS: Normal sinus rhythm Normal ECG Compared to ECG 12/22/2018 20:45:29 No significant changes Electronically Signed On 03-26-19 07:49:20 CDT by Juan Birch
== END 2019-03-25 16:41 | disposition home or self-care (01) ==
LOC: ER 11:35
DX: J15.8 Pneumonia due to other specified bacteria (principal); R55 Syncope and collapse; R11.0 Nausea; E78.5 Hyperlipidemia, unspecified; I10 Essential (primary) hypertension; Z88.5 Allergy status to narcotic agent
CPT/HCPCS: 96365; 93005; 93306; 87040 ×2; 85025; 80048; 36415; 83735; 85610; 80076; 81003; 84484; 83880; 71045; 93880; 99284; J7030

== ENCOUNTER 2019-10-07 16:57 | Inpatient (IN) | payer OTHER ==
--- NOTE | 2019-10-07 17:24 | RAD REPORT ---
EXAM DESCRIPTION: CT - Ct Stroke Brain Wo Cont - 10/07/2019 5:18 pm CLINICAL HISTORY: CONFUSED CVA symptomology COMPARISON: HEAD BRAIN W O CONTRAST dated 05/23/2011 TECHNIQUE: All CT scans are performed using dose optimization technique as appropriate and may inclu de automated exposure control or mA/KV adjustment according to patient size. FINDINGS: No intracranial hemorrhage, hydrocephalus or extra-axial fluid collection.Mild generalized brain atrophy is present with mild periventricular and deep white matter chronic microvascular ische andie changes.No areas of brain edema or evidence of midline shift. The paranasal sinuses and mastoids are clear. The calvarium is intact. IMPRESSION: No acute intracranial abnormality. The findings were discussed with Dr. Dave On 10/07/2019 at 5:20 p.m. by telephone.
[2019-10-07 17:26] LABS: Absolute Lymphocytes (CBC) 2.6 K/uL (0.7-4.9); Basophils % 0.9 % (0-1.3); Hematocrit 43.5 % (36.0-45.0); Lymphocytes % 26.7 % (15.3-44.8); MPV 8.3 fL (7.6-11.3); RBC Red Blood Cell Count 4.89 M/uL (3.86-4.86)
[2019-10-07 17:33] LABS: Protime INR 0.97
--- NOTE | 2019-10-07 17:39 | RAD REPORT ---
EXAM DESCRIPTION: RAD - Chest Single View - 10/07/2019 5:29 pm CLINICAL HISTORY: CONGESTION Chest pain. COMPARISON: Chest Single View dated 03/25/2019; Chest Single View dated 12/22/2018; Chest Single View dated 06/08/2017; Chest Single View dated 11/23/2016 FINDINGS: Portable technique limits examination quality. The lungs are emphysematous but grossly clear. The heart is normal in size. No displaced fractures. IMPRESSION: No acute intrathoracic process suspected.
[2019-10-07 17:45] LABS: Amylase Level 47 U/L (25-115); BUN Blood Urea Nitrogen 14 mg/dL (7-18); Bicarbonate 29 mmol/L (21-32); Glucose Level 121 mg/dL (74-106); Lipase 153 U/L (73-393); Sodium Level 140 mmol/L (136-145); Troponin (Emerg Dept Use Only) < 0.02 ng/mL (0.0-0.045)
[2019-10-07] MEDS ORDERED: CLOPIDOGREL 75 MG TABLET ONE (17:56)
--- NOTE | 2019-10-07 18:36 | ER ---
Nurse's Notes [facility] Name: Ivanna Joseph Age: 74 yrs Sex: Female : 1945 Arrival Date: 10/07/2019 Time: 16:59 Bed 16 Private MD: Beny Lopez C Diagnosis: Weakness-left hand Presentation: 10/07 17:01 Presenting complaint: Intermittent dizziness x 2 days. left arm weakness and numbness hb that started at 1600 today. Transition of care: patient was not received from another setting of care. Onset of symptoms was October 07, 2019. Risk Assessment: Do you want to hurt yourself or someone else? Patient reports no desire to harm self or others. Care prior to arrival: Medication(s) given: ASA, 81 mg, x 4, at 1600. 17:01 Method Of Arrival: Wheelchair hb 17:01 Acuity: QUE 3 hb 20:28 Initial Sepsis Screen: Does the patient meet any 2 criteria? No. Patient's initial mg2 sepsis screen is negative. Does the patient have a suspected source of infection? No. Patient's initial sepsis screen is negative. Triage Assessment: 17:23 General: Appears Behavior is calm, cooperative, appropriate for age. EENT: No deficits bp noted. Neuro: Level of Consciousness is awake, alert, obeys commands, Oriented to person, place, time, situation, Appropriate for age Accredited Pharmacy Technician are weak on left Moves all extremities. Speech is normal, Facial symmetry appears normal, Pupils are PERRLA. Cardiovascular: Rhythm is sinus rhythm. Respiratory: Airway is patent Respiratory effort is even, unlabored, Respiratory pattern is regular, symmetrical. GI: Reports nausea. : No signs and/or symptoms were reported regarding the genitourinary system. Derm: No deficits noted. Musculoskeletal: No deficits noted. Historical: - Allergies: 17:05 Codeine; hb - PMHx: 17:05 Aortic Stenosis; Arthritis; Hyperlipidemia; Hypertension; hb - PSHx: 17:05 ; hb - Immunization history:: Adult Immunizations up to date. - Social history:: Patient/guardian denies using alcohol, street drugs, The patient lives with family, Smoking status: Patient denies any tobacco usage or history of. - Coronavirus screen:: The patient has NOT traveled to [place] in the past 14 days. Proceed with normal triage process as indicated. - Family history:: not pertinent. - Ebola Screening: : No symptoms or risks identified at this time. Screenin:22 Abuse screen: Denies threats or abuse. Denies injuries from another. Nutritional bp screening: No deficits noted. Tuberculosis screening: No symptoms or risk factors identified. Fall Risk None identified. 18:14 The patient has not been NPO before screening. The patient is alert, able to follow bp commands. The patient does not exhibit slurred or garbled speech The patient is not exhibiting difficulty speaking. The patient does not exhibit difficulty understanding words. The patient is able to swallow own secretions with no drooling or need for suction. Patient tolerated one teaspoon of water. No drooling, immediate coughing, gurgling, or clearing of the throat was noted. The patient tolerated 90mL of water. No drooling, immediate coughing, gurgling, or clearing of the throat was noted. The patient passed the bedside swallow screening. Oral medications may be given as ordered. Contact Physician for further diet orders. Assessment: 17:06 Reassessment: CODE STROKE CALLED, PT TO CT VIA WHEELCHAIR WITH JELENA GONZALEZ. hb 17:15 Reassessment: PT RETURNED TO ROOM FROM CT. PT AO4 BUT NOTABLE WEAKNESS IN LEFT FACILITIES ASSISTANT. bp Pain: Denies pain. GI: Abdomen is non-distended. 18:21 Reassessment: ALL CURRENT ORDERS COMPLETED, VS STABLE ON MONITOR. NO FOCAL NEURO bp DEFICITS NOTED AT THIS TIME. Vital Signs: 17:04 BP 184 / 88; Pulse 76; Resp 16; Temp 98.8; Pulse Ox 100% on R/A; Weight 68.04 kg; hb Height 5 ft. 4 in. (162.56 cm); Pain 0/10; 18:13 BP 154 / 72; Pulse 63; Resp 15; Pulse Ox 100% ; bp 20:28 BP 136 / 64; Pulse 69; Resp 18; Temp 98.5(O); Pulse Ox 97% on R/A; mg2 17:04 Body Mass Index 25.75 (68.04 kg, 162.56 cm) hb NIH Stroke Scale Scores: 21:27 NIHSS Score: 1 ma2 ED Course: 16:59 Patient arrived in ED. rg4 17:00 Beny Lopez MD is Private Physician. rg4 17:04 Triage completed. hb 17:04 Arm band placed on. hb 17:07 Rodrigo Iyer RN is Primary Nurse. bp 17:09 Amador Grace MD is Attending Physician. ma2 17:15 Inserted saline lock: 20 gauge in left antecubital area, using aseptic technique. Blood bp collected. 17:22 Patient has correct armband on for positive identification. Bed in low position. Call bp light in reach. Side rails up X2. Adult w/ patient. reconnaissance crewmember on. Pulse ox on. NIBP on. 18:26 Bernadette Davis MD is Hospitalizing Provider. ma2 18:35 Hospitalizing Provider role handed off by Bernadette Davis MD ma2 18:35 Beny Lopez MD is Hospitalizing Provider. ma2 20:29 No provider procedures requiring assistance completed. Patient admitted, IV remains in mg2 place. Administered Medications: 17:48 Not Given (Physician Discretion): Labetalol 10 mg IVP once bp 17:48 Not Given (Physician Discretion): Aspirin Chewable Tablet 324 mg PO once; 81 mg tablets bp x 4 18:00 Drug: PlaVIX 75 mg Route: PO; bp 21:13 Follow up: Response: No adverse reaction mg2 Point of Care Testing: Blood Glucose: 17:15 Blood Glucose: 105 mg/dL; bp Ranges: Outcome: 18:26 Decision to Hospitalize by Provider. ma2 21:17 Admitted to Tele accompanied by nurse, via wheelchair, room 427, with chart, Report mg2 called to LISA Reyes 21:17 Condition: stable 21:17 Instructed on the need for admit. 21:27 Patient left the ED. mg2 NIH Stroke Scale - NIH Stroke Score Date: 10/07/2019 Time: 21:27 Total Score = 1 1a. Level of Consciousness (LOC) - 0(Alert) 1b. Level of Consciousness (LOC) (Year \T\ Age) - 0(Both) 1c. LOC Commands (Open \T\ Closes Eyes/Head Miller) - 0(Both) 2. Best Gaze (Lateral Gaze Paresis) - 0(Normal) 3. Visual Field Loss - 0(No visual loss) 4. Facial Palsy - 0(Normal) 5a. Left Arm: Motor (10-second hold) - 1(Drift) 5b. Right Arm: Motor (10-second hold) - 0(No drift) 6a. Left Leg: Motor (5-second hold - always test supine) - 0(No drift) 6b. Right Leg: Motor (5-second hold - always test supine) - 0(No drift) 7. Limb Ataxia (finger/nose \T\ heel/brumfield - test with eyes open) - 0(Absent) 8. Sensory Loss (pinprick arms/legs/face) - 0(Normal) 9. Best Language: Aphasia (description/naming/reading) - 0(No aphasia) 10. Dysarthria (speech clarity - read or repeat words) - 0(Normal) 11. Extinction and Inattention (visual/tactile/auditory/spatial/personal) - 0(No abnormality) Initials: ma2 Signatures: Jelena Hammonds RN RN hb Shila Breen 4 Rodrigo Iyer RN RN bp Amador Grace MD MD ma2 Kirit Hayes RN RN mg2 Corrections: (The following items were deleted from the chart) 17:05 17:01 Care prior to arrival: None. hb hb
--- NOTE | 2019-10-07 18:36 | EDPHYS ---
Physician Documentation [facility] Name: Ivanna Joseph Age: 74 yrs Sex: Female : 1945 Arrival Date: 10/07/2019 Time: 16:59 Bed 16 Private MD: Beny Lopez C ED Physician Amador Grace HPI: 10/07 18:19 This 74 yrs old Female presents to ER via Wheelchair with complaints of ma2 Numbness Of Arm, High Blood Pressure, Nausea. 18:19 This 74 yrs old Female presents to ER via Wheelchair with complaints of ma2 Numbness Of Arm, High Blood Pressure, Nausea. 18:19 The patient or guardian complains of. The complaints affect the dorsal aspect of left ma2 forearm and left hand. Associated signs and symptoms: Pertinent negatives: erythema, numbness, swelling, tingling. Severity of symptoms: At their worst the symptoms were very mild, in the emergency department the symptoms have improved. The patient has not experienced similar symptoms in the past. left upper extremity weakness that started 2 hrs ag, improving rapidly . Historical: - Allergies: 17:05 Codeine; hb - PMHx: 17:05 Aortic Stenosis; Arthritis; Hyperlipidemia; Hypertension; hb - PSHx: 17:05 ; hb - Immunization history:: Adult Immunizations up to date. - Social history:: Patient/guardian denies using alcohol, street drugs, The patient lives with family, Smoking status: Patient denies any tobacco usage or history of. - Coronavirus screen:: The patient has NOT traveled to [place] in the past 14 days. Proceed with normal triage process as indicated. - Family history:: not pertinent. - Ebola Screening: : No symptoms or risks identified at this time. ROS: 18:19 Constitutional: Negative for fever, chills, and weight loss. ma2 18:19 All other systems are negative. Exam: 18:19 Constitutional: This is a well developed, well nourished patient who is awake, alert, ma2 and in no acute distress. Head/Face: Normocephalic, atraumatic. ENT: Nares patent. No nasal discharge, no septal abnormalities noted. Tympanic membranes are normal and external auditory canals are clear. Oropharynx with no redness, swelling, or masses, exudates, or evidence of obstruction, uvula midline. Mucous membranes moist. Chest/axilla: Normal chest wall appearance and motion. Nontender with no deformity. No lesions are appreciated. Cardiovascular: Regular rate and rhythm with a normal S1 and S2. No gallops, murmurs, or rubs. Normal PMI, no JVD. No pulse deficits. Respiratory: Lungs have equal breath sounds bilaterally, clear to auscultation and percussion. No rales, rhonchi or wheezes noted. No increased work of breathing, no retractions or nasal flaring. Abdomen/GI: Soft, non-tender, with normal bowel sounds. No distension or tympany. No guarding or rebound. No evidence of tenderness throughout. Skin: Warm, dry with normal turgor. Normal color with no rashes, no lesions, and no evidence of cellulitis. MS/ Extremity: Pulses equal, no cyanosis. Neurovascular intact. Full, normal range of motion. Neuro: Awake and alert, GCS 15, oriented to person, place, time, and situation. Cranial nerves II-XII grossly intact. strength is 4/5 on left UE and has left drip, otherwise 5/5 in all extremities. Sensory grossly intact. Cerebellar exam normal. Normal gait. Vital Signs: 17:04 BP 184 / 88; Pulse 76; Resp 16; Temp 98.8; Pulse Ox 100% on R/A; Weight 68.04 kg; hb Height 5 ft. 4 in. (162.56 cm); Pain 0/10; 18:13 BP 154 / 72; Pulse 63; Resp 15; Pulse Ox 100% ; bp 20:28 BP 136 / 64; Pulse 69; Resp 18; Temp 98.5(O); Pulse Ox 97% on R/A; mg2 17:04 Body Mass Index 25.75 (68.04 kg, 162.56 cm) hb NIH Stroke Scale Scores: 21:27 NIHSS Score: 1 ma2 MDM: 17:09 Patient medically screened. ma2 18:19 Differential diagnosis: abrasion, tendonitis, TIA, vs stroke. Data reviewed: vital ma2 signs, nurses notes. Counseling: I had a detailed discussion with the patient and/or guardian regarding: the historical points, exam findings, and any diagnostic results supporting the discharge/admit diagnosis, the presence of at least one elevated blood pressure reading (>120/80) during this emergency department visit, the need for further work-up and treatment in the hospital. Response to treatment: the patient's symptoms have mildly improved after treatment, the patient's symptoms have markedly improved after treatment. ED course: discussed with dr. Flores how advised against tpa as she has low NIHSS and rapidly improving symptoms, risk of bleeding if tpa is given outweigh benefits. . 18:27 ED course: took 4 baby aspirin at home . wi10/07 17:10 Order name: Lipase 10/07 17:10 Order name: Troponin (emerg Dept Use Only) wi10/07 17:10 Order name: Amylase, Serum 10/07 17:10 Order name: Basic Metabolic Panel [facility] 10/07 17:10 Order name: CBC with Diff wi10/07 17:10 Order name: Protime (+inr) wi10/07 17:10 Order name: Ptt, Activated 10/07 17:30 Order name: CBC with Automated Diff; Complete Time: 17:41 EDMI 10/07 17:33 Order name: Glucose, Ancillary Testing; Complete Time: 17:41 10/07 17:59 Order name: Basic Metabolic Panel; Complete Time: 18:19 10/07 17:59 Order name: Troponin (Emerg Dept Use Only); Complete Time: 18:19 10/07 17:59 Order name: Amylase Level; Complete Time: 18:19 10/07 17:59 Order name: Lipase; Complete Time: 18:19 MI 10/07 17:59 Order name: Protime (+INR); Complete Time: 18:19 MI 10/07 17:10 Order name: CT Stroke Brain w/o Contrast 10/07 17:10 Order name: Stroke CXR 1 View 10/07 17:10 Order name: EKG; Complete Time: 17:25 wi10/07 17:10 Order name: Accucheck; Complete Time: 17:27 wi10/07 17:10 Order name: Cardiac monitoring; Complete Time: 17:28 wi10/07 17:10 Order name: EKG - Nurse/Tech; Complete Time: 17:27 wi10/07 17:10 Order name: IV Saline Lock; Complete Time: 17: wi10/07 17:10 Order name: CT Stroke Brain w/o Contrast iw 10/07 17:59 Order name: PTT, Activated Partial Thromb; Complete Time: 18:19 [facility] 10/07 18:19 Order name: Urine Dipstick--Ancillary (enter results) bd 10/07 19:44 Order name: CT EDMI 10/07 19:45 Order name: RAD [facility] 10/07 19:57 Order name: Urine Dipstick-Ancillary [facility] 10/07 17:10 Order name: Labs collected and sent; Complete Time: 17:27 wi2 10/07 17:10 Order name: NPO; Complete Time: 17:27 wi2 10/07 17:10 Order name: O2 Per Protocol; Complete Time: 17:27 wi2 10/07 17:10 Order name: O2 Sat Monitoring; Complete Time: 17:27 wi2 10/07 17:10 Order name: Stroke Swallow Screen; Complete Time: 18:12 wi2 10/07 17:41 Order name: Urine Dipstick-Ancillary (obtain specimen); Complete Time: 18:12 ma2 Administered Medications: 17:48 Not Given (Physician Discretion): Labetalol 10 mg IVP once bp 17:48 Not Given (Physician Discretion): Aspirin Chewable Tablet 324 mg PO once; 81 mg tablets bp x 4 18:00 Drug: PlaVIX 75 mg Route: PO; bp 21:13 Follow up: Response: No adverse reaction mg2 Point of Care Testing: Blood Glucose: 17:15 Blood Glucose: 105 mg/dL; bp Ranges: Critical Glucose Levels:Adult <50 mg/dl or >400 mg/dl <40 mg/dl or >180 mg/dl Disposition: 10/07/19 18:26 Hospitalization ordered by Beny Lopez for Observation. Preliminary diagnosis is Weakness - left hand. - Bed requested for Telemetry/MedSurg (Inpatient). - Status is Observation. mg2 - Condition is Stable. - Problem is new. - Symptoms are unchanged. NIH Stroke Scale - NIH Stroke Score Date: 10/07/2019 Time: 21:27 Total Score = 1 1a. Level of Consciousness (LOC) - 0(Alert) 1b. Level of Consciousness (LOC) (Year \T\ Age) - 0(Both) 1c. LOC Commands (Open \T\ Closes Eyes/Accounting Manager Controller) - 0(Both) 2. Best Gaze (Lateral Gaze Paresis) - 0(Normal) 3. Visual Field Loss - 0(No visual loss) 4. Facial Palsy - 0(Normal) 5a. Left Arm: Motor (10-second hold) - 1(Drift) 5b. Right Arm: Motor (10-second hold) - 0(No drift) 6a. Left Leg: Motor (5-second hold - always test supine) - 0(No drift) 6b. Right Leg: Motor (5-second hold - always test supine) - 0(No drift) 7. Limb Ataxia (finger/nose \T\ heel/brumfield - test with eyes open) - 0(Absent) 8. Sensory Loss (pinprick arms/legs/face) - 0(Normal) 9. Best Language: Aphasia (description/naming/reading) - 0(No aphasia) 10. Dysarthria (speech clarity - read or repeat words) - 0(Normal) 11. Extinction and Inattention (visual/tactile/auditory/spatial/personal) - 0(No abnormality) Initials: [facility] Signatures: Dispatcher [employer] EDRajni Rodas, LISA GONZALEZ cg Jelena Hammonds RN RN hb Rodrigo Iyer RN RN bp Amador Grace MD MD ma2 Kirit Hayes RN RN mg2 Corrections: (The following items were deleted from the chart) 18:35 18:26 Hospitalization Ordered by Bernadette Davis MD for Observation. Preliminary ma2 diagnosis is Weakness - left hand. Bed requested for Telemetry/MedSurg (Inpatient). Status is Observation. Condition is Stable. Problem is new. Symptoms are unchanged. ma2 20:25 18:35 10/07/2019 18:26 Hospitalization Ordered by Beny Lopez MD for Observation. cg Preliminary diagnosis is Weakness - left hand. Bed requested for Telemetry/MedSurg (Inpatient). Status is Observation. Condition is Stable. Problem is new. Symptoms are unchanged. ma2 21:27 20:25 10/07/2019 18:26 Hospitalization Ordered by Beny Lopez MD for Observation. mg2 Preliminary diagnosis is Weakness - left hand. Bed requested for Telemetry/MedSurg (Inpatient). Status is Observation. Condition is Stable. Problem is new. Symptoms are unchanged. cg
[2019-10-07 19:51] LABS: Urine Blood NEGATIVE (NEG); Urine Glucose NEGATIVE (NEG); Urine Protein NEGATIVE (NEG); Urine Specific Gravity 1.015 (1.005-1.030); Urine pH 8.5 (5.0-7.0)
--- NOTE | 2019-10-07 20:25 | RAD REPORT ---
EXAM DESCRIPTION: US - CP - 10/07/2019 8:13 pm CLINICAL HISTORY: stroke CVA symptomology COMPARISON: Carotid Artery Bilateral dated 03/25/2019 TECHNIQUE: Real-time sonographic evaluation of both carotid systems was performed. Doppler interroga tion was performed with waveform tracing bilaterally. FINDINGS: Normal high resistance waveforms are noted in both external carotid arteries. The common c arotid arteries and internal carotid arteries show normal low resistance waveforms. Moderate hard plaque left carotid bulb. Peak systolic and end diastolic velocity values and the ICA/C CA ratios are in the non-hemodynamically significant range. Antegrade flow seen in both vertebral arteries. IMPRESSION: Moderate hard plaquing left carotid bulb. No evidence of a hemodynamically significant stenosis.
[2019-10-07] MEDS ORDERED: INSULIN -REGULAR HUMAN 50 UNIT/0.5 ML ML SQ SCH (21:00)
[2019-10-07 22:14] VITALS: BMI 26.6
[2019-10-07] MEDS: NA CHLORIDE 0.9% 1,000 ML IV SCH (22:37)
[2019-10-08] MEDS ORDERED: INSULIN -REGULAR HUMAN 50 UNIT/0.5 ML ML SQ SCH
[2019-10-08 04:38] LABS: CKMB Creatine Kinase MB < 1.0 ng/mL (0.3-3.6); Creatine Phosphokinase 32 U/L (26-192); HDL Cholesterol 39 mg/dL (40-60); LDL Cholesterol, Calculated 81 (<130); Troponin I < 0.02 ng/mL (0.0-0.045)
[2019-10-08] MEDS: INSULIN -REGULAR HUMAN 50 UNIT/0.5 ML ML SQ SCH ×4 (07:30→20:49)
--- NOTE | 2019-10-08 07:32 | HP ---
Date of Admission: 10/07/2019 Chief Complaint: Weakness and numbness of left arm. History Of Present Illness: This is a 74-year-old pleasant female patient who started to have some w eakness of left upper extremity today along with tingling numbness of her left hand. This problem st arted around 3:45 p.m. today and she came into the emergency room. She denies any visual complaints. No weakness of legs. No trouble swallowing. Although she was evaluated in the ER she was admitted to the hospital with stroke problem and ER physician contacted me in the evening time after evaluati on was completed, he informed me that patient came in with weakness of left upper extremity and strok e problem. CAT scan of the head was negative, but since her arrival to the emergency has apparently improved, and he discussed with neurologist, Dr. Flores and Dr. Flores advised her that there was no need for tPA considering patient's symptoms are rapidly improving since presentation to the emerg ency room. I saw her in the evening time. Her daughter was present with her at bedside. Allergies: TO CODEINE CAUSING BRADYCARDIA. Medications: Aspirin 81 mg p.o. daily, pravastatin 80 mg p.o. daily, and carvedilol 6.25 mg 1-2 tabl ets by mouth 2 times a day. Review of Systems: CORPORATE WEBMASTER as mentioned above and also has spells of dizziness, which is her ongoing problem. All other systems reviewed and negative. Past Medical History: Significant for impaired fasting glucose, hypertension, mixed hyperlipidemia, coronary artery disease, aortic stenosis, carotid artery stenosis involving bilateral carotid arterie s, and gastroesophageal reflux disease. Past Surgical History: Aortic valve replacement surgery and this was done on February 07, 2019, and C-se ction. Family History: Father and had bone cancer. Mother , had ovarian cancer. Social History: Negative for smoking and alcohol use. Physical Examination: Vital Signs: When she came into emergency room blood pressure 184/88, pulse 76, respiratory rate 16, temperature 98.8, oxygen saturation 100%. Height 5 feet, 4 inches. Weight 68 kg. General: Awake, alert, oriented, not in distress. HEENT: Head atraumatic, normocephalic. Conjunctivae nonerythematous. Sclerae white. Mouth, no thr ush or edema noted. Ears/Nose, no mass, lesion, discharge noted. Neck: Supple. No JVD, lymph nodes, bruit, thyromegaly noted. Lungs: Bilateral good equal air entry. Clear to auscultation. No rhonchi. No rales. Heart: Normal heart sounds, no murmur or gallop. Abdomen: Soft, bowel sounds normal. No guarding, rigidity, tenderness, mass, hepatosplenomegaly, dis tention, or bruit noted. Extremities: No leg edema. No calf tenderness. Skin: No rash, ulcer, cellulitis. Lymphatics: No lymph node enlargement in neck, supraclavicular, infraclavicular region. Neuro: Patient has weakness of left upper extremity with power 4/5. Rest of the neurological exam i s unremarkable. Chest: Unremarkable. External Genitalia: Deferred. Rectal: Deferred. Laboratory Data: INR 0.9. Chest x-ray; no acute cardiopulmonary changes. CAT scan of the head; no acute intracranial changes. White count 9.8, hemoglobin 14.4, platelets 345. Sodium 140, potassium 4, chloride 105, bicarb 29, BUN 14, creatinine 0.65, glucose 121. Troponin less than 0.02. Lipase 1 53. Urinalysis; 1+ ketones. Impression: 1.Stroke with left-sided hemiparesis. 2.Hypertension. 3.Mixed hyperlipidemia. 4.Bilateral carotid artery stenosis. 5.Coronary artery disease. 6.Aortic stenosis. 7.Gastroesophageal reflux disease. 8.Impaired fasting glucose. Plan: We will go ahead and admit the patient to hospital for further evaluation and management of th is problem. Patient is appropriate for inpatient and is expected to spend 2 midnights in the hospita . Consult neurologist, consult physical therapy, occupational therapy. We will consult inpatient r ehab as well. We will get fasting lipid profile done. Carotid doppler and echo will be done. We wi ll follow up on results and details and plan of treatment discussed with patient and her family. Dec ision regarding anti-platelet therapy will be made as per recommendation from neurologist. Her EKG h ad shown normal sinus rhythm. CARLOS/MODL Voice ID: [id number]
[2019-10-08] MEDS ORDERED: PNEUMOCOCCAL VACCINE 0.5 ML IMVAC ONE (08:00)
[2019-10-08] MEDS ORDERED: INFLUENZA VACCINE (for 3y+) 0.5 ML DOSE IMVAC ONE (08:00)
--- NOTE | 2019-10-08 08:42 | EKG ---
Test Date: 2019-10-07 Test Time: 17:24:50 Wood Tool Maker: PANKAJ MEASUREMENT RESULTS: Intervals: Rate: 71 AZ: 166 QRSD: 82 QT: 394 QTc: 428 [place]: P: 54 AZ: 166 QRS: -23 T: 59 INTERPRETIVE STATEMENTS: Normal sinus rhythm Voltage criteria for left ventricular hypertrophy Abnormal ECG Compared to ECG 03/25/2019 11:49:08 Left ventricular hypertrophy now present Electronically Signed On 10-08-19 08:41:10 FRESH FOODS CAKE DECORATOR by Bar Davis
[2019-10-08] MEDS: ASPIRIN EC 81 MG TAB PO SCH (08:58)
[2019-10-08] MEDS: ENOXAPARIN 40 MG/0.4 ML SQ SCH (08:58)
[2019-10-08] MEDS: CLOPIDOGREL 75 MG TABLET PO SCH (08:58)
[2019-10-08] MEDS ORDERED: ASPIRIN EC 81 MG TAB PO SCH (09:00)
[2019-10-08] MEDS ORDERED: carvediloL 6.25 MG TAB PO ONE (10:58)
--- NOTE | 2019-10-08 12:19 | RAD REPORT ---
EXAM DESCRIPTION: MRI - Brain W/Wo Cont - 10/08/2019 12:10 pm CLINICAL HISTORY: STROKE, left-sided weakness, visual disturbances COMPARISON: MRA Head Wo Cont dated 10/08/2019; Ct Stroke Brain Wo Cont dated 10/07/2019; MRA Neck W/Wo Cont dated 10/08/2019 TECHNIQUE: Sagittal and axial T1-weighted images were obtained. Axial PD/heavily T2-weighted and T2- FLAIR images were obtained along with axial DWI/ADC mapping sequences. Coronal heavily T2 weighted s equence obtained. Axial and coronal post-contrast T1-weighted images were also obtained. A 16 ml Mul tihance contrast following utilized. FINDINGS: No intracranial hemorrhage, mass or acute infarction. Increased diffusion weighted signal at the ranjana mid brain junction does not have corresponding signal drop on ADC mapping. T2/IR signal i n this region is increased with only mildly. Atrophy changes are minimal for age. Ventricles are norm al. Patient has scattered T2/IR hyperintensities in the white matter typical for age related chronic ischemic change. Brainstem signal abnormality is likely or part of chronic ischemic change. There is no edema or shift of midline structures. No extra-axial fluid collections. Saini-matter/white matter j unction is preserved. Signal voids are seen as a normal finding in the major intracranial vessels. Post-contrast images show normal enhancement. No dural thickening. Mastoid air cells and paranasal sinuses are clear. IMPRESSION: No acute infarction. No hemorrhage, mass or other acute intracranial finding. Cerebral hemisphere and brainstem chronic ischemic changes are present.
--- NOTE | 2019-10-08 12:21 | RAD REPORT ---
EXAM DESCRIPTION: MRI - MRA Head Wo Cont - 10/08/2019 12:12 pm CLINICAL HISTORY: Stroke, visual disturbances, left-sided weakness COMPARISON: MRI brain same date TECHNIQUE: Axial and coronal 3D [id number] image acquisition was performed. 3D rotational images were generated with source and reconstruction images reviewed. Horizontal and vertical axis rotation al views generated using MIP protocol. FINDINGS: No aneurysm or vascular malformation. The anterior, middle and posterior cerebral artery d istribution show minimal atherosclerotic change. No named branch occlusion or significant stenosis se en. Distal internal carotid arteries also without significant luminal narrowing disease. Distal vertebral arteries and basilar artery show no suspicious finding. IMPRESSION: MRA Head imaging shows no occlusion, significant stenosis or other significant vascular finding.
--- NOTE | 2019-10-08 12:23 | RAD REPORT ---
EXAM DESCRIPTION: MRI - MRA Neck W/Wo Cont - 10/08/2019 12:11 pm CLINICAL HISTORY: Stroke, left-sided weakness, visual disturbances COMPARISON: MRI brain same date, MRA head same date TECHNIQUE: MR angiography of the cervical vasculature performed. Coronal imaging plane acquisition u tilized. A 16 milliliter MultiHance contrast volume was utilized. Coronal reformatted images were gen erated and reviewed. Vertical axis 3D rotational projections obtained using maximum intensity project ion protocol. FINDINGS: Aortic arch is 3 vessel origin. No origins stenosis. Vertebral artery origins also unremar kable. The bilateral common carotid, internal carotid and vertebral arteries show no dissection, sign ificant luminal narrowing or vasculitis findings. Patient has minimal narrowing at the origin of each internal carotid artery not deemed hemodynamically significant. Bilateral subclavian arteries unrema rkable. IMPRESSION: MRA neck imaging shows no significant or suspicious finding.
[2019-10-08] MEDS: NA CHLORIDE 0.9% 1,000 ML IV SCH ×2 (12:28→20:50)
[2019-10-08] MEDS ORDERED: ROSUVASTATIN 10 MG TAB PO SCH (21:00)
--- NOTE | 2019-10-08 21:38 | CON ---
Reason For Consultation: Consultation called because of possible stroke. History Of Present Illness: Ms. Joseph is a 74-year-old right-handed patient with multiple stroke risk factors including hypertension, dyslipidemia, coronary artery disease, who comes into [facility] after onset of left-sided face and arm numbness. No abigail weakness. Symptom onset was around 3:45 in the afternoon on 10/07/2019. She arrived in the emergency room at 4:59. Her NIH Stroke Scale score was 1. Her head CT scan was negative for any acute ischemic or hemorrhagic de la rosa e and her electrocardiogram showed a normal sinus rhythm with voltage criteria for left ventricular h ypertrophy. She had some improvement in her symptoms and she was not felt to be a candidate for tPA given the NIH stroke scale and her symptom resolution. She was admitted for stroke workup. Her amezcua tid artery ultrasound identified moderate hard plaque in left carotid bulb, but no evidence of hemody namically significant stenosis. Her brain MRI done the following day showed no acute ischemic or hem orrhagic change since. Study did identify scattered small-vessel ischemic disease in the white matte r. Magnetic resonance angiogram of her brain showed no significant stenosis in the jena of [place] or intracranial arteries and MRA of the neck showed no significant or suspicious findings. She was taking an aspirin 81 mg along with pravastatin 80 mg daily and carvedilol 6.25 mg twice daily at home. She was given Plavix along with the aspirin and folic acid while in the hospital and also switched to Crestor 20 mg at bedtime. At the time of my evaluation, she felt that she was mostly ghislaine k to her normal level of functioning. She did have DVT prophylaxis. Past Medical History: As indicated. Allergies: CODEINE. Medications: At home as indicated. Family History: Father had bone cancer. Mother had ovarian cancer. Social History: No alcohol, tobacco, or IV drug use. Review of Systems: She does have some episodes of dizzy spells, orthostatic changes. Otherwise, no recent fevers, chill s, nausea, vomiting, myalgias, arthralgias, headache, weight change, rash, psychiatric complaints, or other issues. Surgical History: Aortic valve replacement. Physical Examination: Vital Signs: Blood pressure 121/59, pulse 72, respiratory rate 16, temperature 98.3, oxygen saturati on 96%. Weight 155 pounds, height 5 feet 4 inches, BMI 26.7. General: Ms. Joseph is resting comfortably in bed. Her is at the bedside. She is in no acu te distress. HEENT: She is normocephalic, atraumatic. Sclerae anicteric. Oropharynx is moist, pink. Neck: Supple. Chest: Clear. Heart: Regular. Extremities: Show no edema, cyanosis, or clubbing. Neurologic: She has normal labial lingual guttural sounds. No expressive or receptive aphasias. Cr anial nerves 2 through 12 are intact by exam. Motor in the upper and lower extremities, she has 5/5 strength proximally and distally. Sensory exam in the upper and lower extremities are intact to ligh t touch, pinprick, temperature with a stocking-glove loss and symmetric and mild reflexes 1+ to 2+ an d symmetric in the upper lower extremities. Coordination intact in upper and lower extremities. Gai t; she has normal stance stride and arm swing. Laboratory Studies: Complete blood count with differential is essentially unremarkable. Slightly el evated RBC of 4.89 and monocytes slightly elevated 12.8, otherwise normal. Coagulation panel is norm al. INR 0.97. Electrolyte panel is normal. Glucose up to 121 from 96 low, triglycerides elevated a t 231, total cholesterol 166, LDL cholesterol 81, HDL cholesterol of 39, cholesterol HDL ratio of 4.2 6. Amylase 47, lipase 153, and urinalysis shows 1+ esterases. Assessment: Ms. Joseph is a 74-year-old patient with a possible transient ischemic attack while taki ng aspirin. She has multiple stroke risk factors as indicated. She has a normal exam at this point. NIH stroke scale 0. Plan: 1.Continue with aspirin along with Plavix, folic acid, and Crestor. 2.She was told about some permissive hypertension in the setting of acute stroke, but blood pressure should be normalized after about a week and she will follow up in clinic with a blood pressure diary within a month. She was also told the importance of regular exercise and hydration and stroke risk reduction. LB/MODL Voice ID: [id number] Report ID: [id number]
--- NOTE | 2019-10-08 22:47 | PN ---
Date of Progress Note: 10/08/2019 Subjective: Patient was seen this morning for followup. No new complaints, problems reported by broderick forrest. No speech problem. No headache. No nausea, vomiting. Objective: Vital signs: Reviewed. HEENT: Unremarkable. Lungs: Clear to auscultation. Heart: Heart sounds normal. Abdomen: Soft, bowel sounds normal. No guarding, rigidity, tenderness, or distention. Extremities: No leg edema. SKIP PITMAN: Left upper extremity weakness has almost completely resolved this morning compared to yesterday . Laboratory Data: Carotid Doppler shows some plaque buildup, but no evidence of hemodynamically signi ficant stenotic lesion. MRI and MRA of the brain were negative. No stroke. No dissection. No aneu rysm. Echocardiogram was ordered, but as I understand, echocardiogram was not done today, even thoug h it was ordered upon admission. Impression: 1.Transient ischemic attack. 2.Carotid artery stenosis. 3.Hypertension. 4.Hyperlipidemia. 5.Coronary artery disease. Plan: I did talk to Dr. Flores this morning. We talked about medication changes and he has recomm ended 81 mg aspirin daily to be continued and add Plavix, add folic acid and statin therapy per order . He will see her on outpatient basis for followup. Will wait until her echocardiogram is done and the n we will plan for discharge. CARLOS/MODL Voice ID: [id number] Report ID: [id number]
[2019-10-09] MEDS: NA CHLORIDE 0.9% 1,000 ML IV SCH ×2 (01:58→11:00)
[2019-10-09] MEDS: INSULIN -REGULAR HUMAN 50 UNIT/0.5 ML ML SQ SCH ×2 (07:30→11:30)
[2019-10-09] MEDS ORDERED: carvediloL 3.125 MG TAB PO SCH (09:00)
[2019-10-09] MEDS: CLOPIDOGREL 75 MG TABLET PO SCH (10:33)
[2019-10-09] MEDS: ENOXAPARIN 40 MG/0.4 ML SQ SCH (10:33)
[2019-10-09] MEDS: ASPIRIN EC 81 MG TAB PO SCH (10:33)
--- NOTE | 2019-10-09 11:03 | ECHO ---
HEIGHT: 5 ft 4 in WEIGHT: 155 lb 6.4 oz DATE OF STUDY: 10/09/[address]: Amador Grace MD 2-DIMENSIONAL: YES M.MODE: YES DOPPLER: YES COLOR FLOW: YES TDS: NO PORTABLE: NO DEFINITY: NO BUBBLE STUDY: NO DIAGNOSIS: STROKE CARDIAC HISTORY: CATHERIZATION: YES SURGERY: YES PROSTHETIC VALVE: BIOPROSTHETIC PACEMAKER: NO MEASUREMENTS (cm) DIASTOLIC (NORMALS) SYSTOLIC (NORMALS) IVSd 1.0 (0.6-1.2) LA Diam 3.9 (1.9-4.0) LVEF 64% LVIDd 3.7 (3.5-5.7) LVIDs 2.5 (2.0-3.5) %FS 34% LVPWd 1.0 (0.6-1.2) Ao Diam 2.2 (2.0-3.7) 2 DIMENSIONAL ASSESSMENT: RIGHT ATRIUM: NORMAL LEFT ATRIUM: NORMAL RIGHT VENTRICLE: PACEMAKER IN RIGHT VENTRICULAR APEX LEFT VENTRICLE: NORMAL TRICUSPID VALVE: NORMAL MITRAL VALVE: NORMAL PULMONIC VALVE: NORMAL AORTIC VALVE: BIOPROSTHETIC PERICARDIAL EFFUSION: NONE AORTIC ROOT: NORMAL LEFT VENTRICULAR WALL MOTION: NORMAL. DOPPLER/COLOR FLOW: BIOPROSTHETIC AORTIC VALVE, NO AORTIC REGURGITATION, PEAK/MEAN GRADIENT 19/10mmHg. ESTIMATED AORTIC VALVE AREA 1.9 CENTIMETERS SQUARED. MILD MITRAL AND TRICUSPID REGURGITATION. NORMAL RIGHT VENTRICULAR SYSTOLIC PRESSURE. COMMENTS: NORMAL LEFT VENTRICULAR EJECTION FRACTION. BIOPROSTHETIC AORTIC VALVE WITH NORMAL HEMODYNAMICS. PACEMAKER IN RIGHT VENTRICLE. MILD MITRAL AND TRICUSPID REGURGITATION. TECHNOLOGIST: PRETTY GAGNON
[2019-10-09 11:43] VITALS: O2SAT 97
--- NOTE | 2019-10-09 12:24 | RAD REPORT ---
EXAM DESCRIPTION: US - Abdomen Pelvis Scan US - 10/09/2019 11:44 am CLINICAL HISTORY: Abdominal pain COMPARISON: None FINDINGS: The right kidney measures 12 centimeters with a normal echotexture. The left kidney measures 12 centimeters with a normal echotexture. 2.7 centimeter right renal cyst No hydronephrosis The velocity of the right renal artery 41 centimeters/second. The velocity of the left renal artery 102 centimeters/second Renal artery/aorta ratios normal IMPRESSION: No sonographic evidence of renal arterial stenosis
[2019-10-09 12:27] VITALS: BP 148/71; TEMP 97.4
--- NOTE | 2019-10-10 00:38 | DS ---
Date of Discharge: 10/09/2019 Disposition: Discharged to go home. Physical Examination: HEENT: Unremarkable. Lungs: Clear to auscultation. Heart: Heart sounds normal. Abdomen: Soft, bowel sounds normal. No guarding, rigidity, tenderness, or distention. Extremities: No leg edema. Laboratory Data: Total cholesterol 166, triglyceride 231, LDL 81, HDL 39, lipase 153. Sodium 140, potassium 4, chloride 105, bicarb 29, BUN 14, creatinine 0.65, glucose 121, white count 9.8, hemoglobin 14.4, platelets 345. Discharge Instructions And Medications: 1. Follow up at my office a week after next. 2. Aspirin 81 mg p.o. daily. 3. Clopidogrel 75 mg p.o. daily. 4. Folic acid 1 mg p.o. daily. 5. Carvedilol 6.25 mg take 1-2 tablets by mouth 2 times a day. 6. Stop pravastatin and start rosuvastatin 20 mg p.o. daily at bedtime. Hospital Course: A 74-year-old pleasant female patient, admitted to the hospital with tingling, numbness, and weakness of left arm. Please see dictated H and P for more information. The patient presented to the emergency room with stroke type of symptoms with weakness of left upper extremity and after she was evaluated in the ER, her CAT scan of the brain was negative and her symptoms of weakness started improving in the emergency room and the ER physician contacted neurologist, Dr. Flores, who recommended no need for any thrombolytic therapy. Considering the patient's symptoms were improving rapidly after she came into emergency room. I saw her in the emergency room late yesterday evening. She did not have any swallowing difficulty. No vision problem. Dr. Flores from Neurology was consulted. Patient had MRI of the brain done, which was negative for any acute stroke. MRA of brain was negative. Carotid Doppler showed plaquing of carotid arteries, but no hemodynamically significant stenotic lesion. Echocardiogram was not done until today and showed normal ejection fraction, prosthetic aortic wall without any problem, so it was an unremarkable echocardiogram. No evidence of any intraventricular thrombus. I also ordered a renal artery Doppler and renal ultrasound, which came back negative except benign renal cyst and normal renal artery Doppler. The patient's DEPENDENCY DIRECTOR exam shows that her weakness from left upper extremity has resolved completely. She is back to normal. Dr. Flores has suggested to add Plavix on top of her 81 mg daily dose of aspirin. Add folic acid and high dose statin therapy, so we have discontinued pravastatin and started her on rosuvastatin. She has plans to go on a cruise this weekend and Dr. Flores has given her permission to do so considering she is back to her normal self. She does have problem with her blood pressure as I did talk to her today explaining to her that she should take her carvedilol 1 tablet 2 times a day regularly, so 1 dose in the morning, 1 dose in the evening. She should check her blood pressure before taking carvedilol and if her systolic blood pressure is more than 150 prior to the dose of carvedilol, she should take the dose at particular time, whether it is morning or evening time, but she should recheck her blood pressure about an hour or so after her carvedilol dose and if the blood pressure still remains higher than 150, then take the second dose of carvedilol. The patient verbalized understanding. She was advised to bring her blood pressure readings to office when she comes for followup. Final Diagnoses: 1. Transient ischemic attack. 2. Hypertension. 3. Mixed hyperlipidemia. 4. Bilateral carotid artery stenosis. 5. Renal cyst, benign. 6. Coronary artery disease. 7. Aortic stenosis. 8. Gastroesophageal reflux disease. 9. Impaired fasting glucose. CARLOS/MODL Voice ID: [id number] Report ID: [id number]
== END 2019-10-09 14:49 | disposition home or self-care (01) | DRG 69 ==
LOC: ER 16:57 → ERHOLD 18:40 → 4TH 21:17
PROVIDERS: ADMIT Internal Medicine; ATTEND Internal Medicine
DX: G45.9 Transient cerebral ischemic attack, unspecified (principal); I65.23 Occlusion and stenosis of bilateral carotid arteries; I10 Essential (primary) hypertension; E78.2 Mixed hyperlipidemia; N28.1 Cyst of kidney, acquired; I25.10 Atherosclerotic heart disease of native coronary artery without angina pectoris; R73.01 Impaired fasting glucose; K21.9 Gastro-esophageal reflux disease without esophagitis
CPT/HCPCS: 36415; 70450; 70544; 70549; 70553; 71045; 80048; 80061; 81003; 82150; 82550; 82553; 82947; 83690; 84484; 85025; 85610; 85730; 90670; 93005; 93306; 93880; 93975; 99285; A9577; J1650; J7030; Q2035